=== PATIENT | female | born 1990 | race Caucasian/White ===

== ENCOUNTER 2016-11-28 17:30 | Emergency (ER) | payer OTHER ==
[2016-06-06 21:57] VITALS: BP 114/75
[2016-11-29] MEDS ORDERED: ONDA4TAB7 PO (08:40)
[2016-11-29] MEDS ORDERED: CIPR250T PO (08:40)
== END 2016-11-28 21:12 | disposition left against medical advice (07) ==
LOC: ER 17:30
DX: R10.9 Unspecified abdominal pain (principal); Z53.21 Procedure and treatment not carried out due to patient leaving prior to being seen by health care provider

== ENCOUNTER 2016-11-29 05:29 | Emergency (ER) | payer OTHER ==
[~2016-11-29] VITALS: Ht 157.5 cm; Wt 88.0 kg
[2016-11-29 06:12] LABS: BILIRUBIN,URINE NEGATIVE (NEG); GLUCOSE,URINE NEGATIVE (NEG); NITRITE,URINE NEGATIVE (NEG); PH,URINE 6.5; PROTEIN,URINE NEGATIVE (NEG-TRACE)
[2016-11-29 06:33] LABS: BACTERIA,URINE MODERATE /HPF (0-FEW); RBC,URINE OCC /HPF (0-2); SQUAMOUS EPITHELIAL CELL,UR MOD /LPF
[2016-11-29] MEDS ORDERED: ONDANSETRON PF 4 MG/2 ML VIAL. IV ONE (07:00)
[2016-11-29] MEDS ORDERED: IV NORMAL SALINE 1000ML BAG 1,000 ML IV SCH (07:00)
[2016-11-29] MEDS ORDERED: KETOROLAC 15 MG/ML VIAL. IV ONE (07:00)
[2016-11-29 07:10] LABS: BASO % 0 % (0-3); EOS % 1 % (0-3); HEMATOCRIT 40.8 % (36.0-47.0); HEMOGLOBIN 13.5 g/dL (12.0-15.5); LYMPH # 2.1 x10^3/uL (1.0-4.8); LYMPH % 18 % (24-48); MEAN CORPUSCULAR HEMOGLOBIN 31 pg (25-35); MEAN CORPUSCULAR HGB CONC 33 g/dL (31-37); MEAN CORPUSCULAR VOLUME 92 fL (79-100); MONO % 7 % (0-9); NEUT % 73 % (31-73); PLATELET COUNT 197 x10^3/uL (140-400); RED BLOOD COUNT 4.43 x10^6/uL (3.50-5.40); RED CELL DISTRIBUTION WIDTH 12.6 % (11.5-14.5); WHITE BLOOD COUNT 11.7 x10^3/uL (4.0-11.0)
[2016-11-29 07:14] LABS: CALCIUM 8.7 mg/dL (8.5-10.1); CREATININE 0.8 mg/dL (0.6-1.0); GFR 86.7; POTASSIUM 3.8 mmol/L (3.5-5.1)
[2016-11-29] MEDS ORDERED: IOHEXOL 300 MG/ML 75 ML VIAL IV ONE (07:45)
[2016-11-29] MEDS ORDERED: CONTRAST GIVEN MC PRN (07:45)
--- NOTE | 2016-11-29 08:20 | RAD ---
CT of the abdomen and pelvis with contrast, 11/29/2016: History: Abdominal pain, nausea and vomiting Multidetector CT imaging was performed following an IV bolus injection of iodinated contrast material. No oral contrast material was administered for this study. The gallbladder is surgically absent. No hepatic abnormality is seen. The pancreas is unremarkable. The spleen is of normal size. There is mild bilateral renal cortical scarring. There is no evidence of renal obstruction. The uterus is within normal limits in size. There is a 1.5 cm focus of rim-like enhancement on the right ovary compatible with a functional cyst. A trace amount of free fluid is present in the pelvis. No pelvic or abdominal adenopathy is seen. The bowel loops are not dilated. The appendix is normal. No free air is evident in the abdomen or pelvis. IMPRESSION: 1. Trace amount of free fluid in the pelvis. This amount of fluid can be on a physiologic basis. 2. No evidence of appendicitis. PQRS Compliance Statement: One or more of the following individualized dose reduction techniques were utilized for this examination: 1. Automated exposure control 2. Adjustment of the mA and/or kV according to patient size 3. Use of iterative reconstruction technique
[2016-11-29] MEDS ORDERED: CIPR250T PO (08:40)
[2016-11-29] MEDS ORDERED: ONDA4TAB7 PO (08:40)
--- NOTE | 2016-11-29 08:40 | PHYS DOC ---
Past Medical History Past Medical History: Depression, GERD, Other Additional Past Medical Histor: HELP Syndrome, PRE-ECLAPSIA Past Surgical History: Cholecystectomy, , Tubal ligation, Other Additional Past Surgical Histo: KIDNEY STENTS, Partial Hysterectomy Additional Information: 0.5 PPD Alcohol Use: None Drug Use: None Adult General Chief Complaint Chief Complaint: ABDOMINAL PAIN [facility] HPI Patient is a 26 year old female who presents with bilateral, right>left lower abdominal pain that started yesterday evening associated with a few episodes of nonbloody nonbilious emesis and nausea. States her abdominal pain is migratory, crampy, constant. She has no dysuria, but has mild urinary frequency. She denies diarrhea, constipation, vaginal bleeding or discharge, hematuria, back pain, fever or chills, cough, rhinorrhea. She denies sick contacts. Review of Systems Review of Systems Constitutional: Denies fever or chills [] Eyes: Denies change in visual acuity, redness, or eye pain [] HENT: Denies nasal congestion or sore throat [] Respiratory: Denies cough or shortness of breath [] Cardiovascular: No additional information not addressed in HPI [] GI: Denies bloody stools or diarrhea [] : Denies dysuria or hematuria [] Musculoskeletal: Denies back pain or joint pain [] Integument: Denies rash or skin lesions [] Neurologic: Denies headache, focal weakness or sensory changes [] Endocrine: Denies polyuria or polydipsia [] Current Medications Current Medications Current Medications Medications (Trade) Dose Ordered Sig/Meka Start Time Stop Time Status Last Admin Dose Admin Info (Do NOT chart on this entry -- for MONITORING) 1 each PRN DAILY PRN 11/29/16 07:45 11/29/16 11:24 DC Iohexol (Omnipaque 300 Mg/ml) 75 ml 1X ONCE 11/29/16 07:45 11/29/16 07:46 DC 11/29/16 07:48 75 ML Ketorolac Tromethamine (Toradol) 15 mg 1X ONCE 11/29/16 07:00 11/29/16 07:01 DC 11/29/16 07:00 15 MG Ondansetron HCl (Zofran) 4 mg 1X ONCE 11/29/16 07:00 11/29/16 07:01 DC 11/29/16 06:59 4 MG Sodium Chloride (Iv Sodium Chloride 0.9% 1000ml Bag) 1,000 ml @ 1,000 mls/hr Q1H 11/29/16 07:00 11/29/16 07:59 DC 11/29/16 06:59 1,000 MLS/HR Allergies Allergies Allergies Coded Allergies Type Severity Reaction Last Updated Verified No Known Drug Allergies 02/24/16 No Physical Exam Physical Exam Constitutional: Well developed, well nourished, no acute distress, non-toxic appearance. [] HENT: Normocephalic, atraumatic, bilateral external ears normal, oropharynx moist, nose normal. [] Eyes: PERRLA, EOMI. [] Neck: Normal range of motion, supple. [] Cardiovascular:Heart rate regular rhythm [] Lungs & Thorax: Bilateral breath sounds clear to auscultation [] Abdomen: Bowel sounds normal, soft, mild bilateral R>L lower abdominal tenderness, no guarding or rebound. [] Skin: Warm, dry, no erythema, no rash. [] Back: No tenderness, no CVA tenderness. [] Extremities: ROM intact, no edema. [] Neurologic: Alert and oriented X 3, normal motor function, normal sensory function, no focal deficits noted. [] Psychologic: Affect normal, judgement normal, mood normal. [] Current Patient Data Vital Signs Vital Signs Date Time Temp Pulse Resp B/P Pulse Ox O2 Delivery O2 Flow Rate FiO2 11/29/16 10:31 74 17 114/65 94 Room Air 11/29/16 05:40 98.5 98.5 Lab Values Laboratory Tests Test 11/29/16 05:40 11/29/16 05:55 11/29/16 06:04 Urine Collection Type Void Urine Color Yellow Urine Clarity Clear Urine pH 6.5 Urine Specific [place] 1.025 Urine Protein Negativemg/dL (NEG-TRACE) Urine Glucose (UA) Negativemg/dL (NEG) Urine Ketones (Stick) Negativemg/dL (NEG) Urine Blood Negative (NEG) Urine Nitrite Negative (NEG) Urine Bilirubin Negative (NEG) Urine Urobilinogen Dipstick 2.0mg/dL (0.2 mg/dL) Urine Leukocyte Esterase Large (NEG) Urine RBC Occ/HPF (0-2) Urine WBC 11-20/HPF (0-4) Urine Squamous Epithelial Cells Mod/LPF Urine Bacteria Moderate/HPF (0-FEW) Urine Mucus Mod/LPF White Blood Count 11.7x10^3/uL (4.0-11.0) H Red Blood Count 4.43x10^6/uL (3.50-5.40) Hemoglobin 13.5g/dL (12.0-15.5) Hematocrit 40.8% (36.0-47.0) Mean Corpuscular Volume 92fL (79-100) Mean Corpuscular Hemoglobin 31pg (25-35) Mean Corpuscular Hemoglobin Concent 33g/dL (31-37) Red Cell Distribution Width 12.6% (11.5-14.5) Platelet Count 197x10^3/uL (140-400) Neutrophils (%) (Auto) 73% (31-73) Lymphocytes (%) (Auto) 18% (24-48) L Monocytes (%) (Auto) 7% (0-9) Eosinophils (%) (Auto) 1% (0-3) Basophils (%) (Auto) 0% (0-3) Neutrophils # (Auto) 8.6x10^3uL (1.8-7.7) H Lymphocytes # (Auto) 2.1x10^3/uL (1.0-4.8) Monocytes # (Auto) 0.8x10^3/uL (0.0-1.1) Eosinophils # (Auto) 0.1x10^3/uL (0.0-0.7) Basophils # (Auto) 0.0x10^3/uL (0.0-0.2) Sodium Level 141mmol/L (136-145) Potassium Level 3.8mmol/L (3.5-5.1) Chloride Level 105mmol/L (98-107) Carbon Dioxide Level 25mmol/L (21-32) Anion Gap 11 (6-14) Blood Urea Nitrogen 12mg/dL (7-20) Creatinine 0.8mg/dL (0.6-1.0) Estimated GFR (Cockcroft-Gault) 86.7 Glucose Level 116mg/dL (70-99) H Calcium Level 8.7mg/dL (8.5-10.1) POC Urine HCG, Qualitative Hcg negative (Negative) Laboratory Tests 11/29/16 05:55 Laboratory Tests 11/29/16 05:55 Radiology/Procedures Radiology/Procedures CT abdomen and pelvis with IV contrast IMPRESSION: 1. Trace amount of free fluid in the pelvis. This amount of fluid can be on a physiologic basis. 2. No evidence of appendicitis. DICTATED and SIGNED BY: YULI YOUNGER MD DATE: 11/29/16 0811 Course & Med Decision Making Course & Med Decision Making Pertinent Labs and Imaging studies reviewed. (See chart for details) Laboratory evaluation remarkable for urinary tract infection. Imaging is unremarkable. She is feeling better after medications. She is tolerating oral intake. Return precautions given. She understands and agrees with plan. Dragon Disclaimer Dragon Disclaimer This electronic medical record was generated, in whole or in part, using a voice recognition dictation system. Departure Departure Impression: Primary Impression: Abdominal pain Additional Impressions: Cystitis without hematuria Nausea and vomiting Disposition: 01 HOME, SELF-CARE Condition: STABLE Referrals: BIMAL METZ MD (PCP) Patient Instructions: Abdominal Pain, [id number] Additional Instructions: Take Zofran as needed for nausea. Take ciprofloxacin for urinary tract infection. Follow-up with your primary care doctor within one week. Return for any concerns. Scripts Ciprofloxacin Hcl 250 Mg Tablet1 Tab PO BID #10 TAB Prov:Jareth BRIGGS MD 11/29/16 Ondansetron Hcl (Zofran)4 Mg Tablet1 Tab PO Q6HRS PRN NAUSEA #10 TAB Prov:Jareth BRIGGS MD 11/29/16 Problem Qualifiers Primary Impression: Abdominal pain Abdominal location: lower abdomen, unspecified Qualified Code: R10.30 - Lower abdominal pain, unspecified Additional Impressions: Nausea and vomiting Vomiting type: unspecified Vomiting Intractability: non-intractable Qualified Code: R11.2 - Nausea with vomiting, unspecified Jareth BRIGGS MD Nov 29, 2016 08:40
[2016-11-29 10:31] VITALS: BP 114/65
== END 2016-11-29 10:33 | disposition home or self-care (01) ==
LOC: ER 05:29
DX: N30.90 Cystitis, unspecified without hematuria (principal); F32.9 Major depressive disorder, single episode, unspecified; K21.9 Gastro-esophageal reflux disease without esophagitis; F17.210 Nicotine dependence, cigarettes, uncomplicated; Z96.0 Presence of urogenital implants; Z90.710 Acquired absence of both cervix and uterus; Z90.49 Acquired absence of other specified parts of digestive tract
CPT/HCPCS: 36415; 74177; 80048; 81001; 81025; 85027; 87086; 96361; 96374; 96375; 99285; J1885; J2405; J7030; Q9967

== ENCOUNTER 2017-01-02 13:41 | Inpatient (IN) | payer SELFPAY ==
[~2017-01-02] VITALS: Ht 157.5 cm; Wt 85.9 kg
[~2017-01-02 13:41] MED LIST: CIPR250T PO; ONDA4TAB7 PO
--- NOTE | 2017-01-02 15:34 | RAD ---
EXAM: Head and cervical spine CT without contrast. HISTORY: Weakness. TECHNIQUE: Computed tomographic images of the head and cervical spine were obtained without contrast. One or more of the following individualized dose reduction techniques were utilized for this examination: 1. Automated exposure control. 2. Adjustment of the mA and/or kV according to patient size. 3. Use of iterative reconstruction technique. COMPARISON: None. FINDINGS: Head: There is no acute hemorrhage. There is no mass effect or midline shift. There is no hydrocephalus. The verma and white matter differentiation pattern is intact. There is a small sphenoid sinus because retention cyst. The mastoid air cells are clear. The orbits are unremarkable. Cervical spine: There is mild cervical kyphosis and minimal anterolisthesis of C2 on C3 and C3 on C4, likely positional. The vertebral bodies normal height and the disc spaces are preserved. There is no suspicious osseous lesion. There is no fracture. There is no significant foraminal or central canal stenosis. There is a 1.1 cm hypodense nodule or cyst within the right thyroid lobe. IMPRESSION: 1. No acute intracranial finding or cervical spine finding. 2. Mild cervical kyphosis with slight listhesis at the upper cervical levels. 3. 1.1 cm right thyroid lesion. This can be better assessed with a thyroid sonogram.
[2017-01-02 16:03] LABS: BASO % 0 % (0-3); EOS % 1 % (0-3); HEMATOCRIT 42.2 % (36.0-47.0); HEMOGLOBIN 14.9 g/dL (12.0-15.5); LYMPH # 2.3 x10^3/uL (1.0-4.8); LYMPH % 29 % (24-48); MEAN CORPUSCULAR HEMOGLOBIN 32 pg (25-35); MEAN CORPUSCULAR HGB CONC 35 g/dL (31-37); MEAN CORPUSCULAR VOLUME 90 fL (79-100); MONO % 5 % (0-9); NEUT % 65 % (31-73); PLATELET COUNT 211 x10^3/uL (140-400); RED CELL DISTRIBUTION WIDTH 12.6 % (11.5-14.5)
[2017-01-02 16:13] LABS: BILIRUBIN,URINE NEGATIVE (NEG); GLUCOSE,URINE NEGATIVE (NEG); NITRITE,URINE NEGATIVE (NEG); PH,URINE 5.5; PROTEIN,URINE NEGATIVE (NEG-TRACE)
[2017-01-02 16:19] LABS: CREATININE 0.8 mg/dL (0.6-1.0); GFR 86.7; POTASSIUM 4.1 mmol/L (3.5-5.1)
[2017-01-02 16:31] LABS: BACTERIA,URINE FEW /HPF (0-FEW); SQUAMOUS EPITHELIAL CELL,UR MANY /LPF
--- NOTE | 2017-01-02 16:50 | PHYS DOC ---
Past Medical History Past Medical History: Depression, GERD, Other Additional Past Medical Histor: HELP Syndrome, PRE-ECLAPSIA, headaches Past Surgical History: Cholecystectomy, , Tubal ligation, Other Additional Past Surgical Histo: KIDNEY STENTS, Partial Hysterectomy Additional Information: 10/10 ppd Alcohol Use: None Drug Use: None Adult General Chief Complaint Chief Complaint: NEURO SYMPTOMS/DEFICITS HPI HPI 26-year-old female who states she's had some right sided weakness in her right upper and lower extremity for the last 3 days. She denies any chest pain or shortness of breath. She states she feels some numbness and tingling in both of her extremities on the right side and significant weakness. She denies any facial symptoms. She denies any slurring to her speech. Patient is fully alert and oriented in no acute distress. She denies any history of health problems. Review of Systems Review of Systems Constitutional: Denies fever or chills [] Eyes: Denies change in visual acuity, redness, or eye pain [] HENT: Denies nasal congestion or sore throat [] Respiratory: Denies cough or shortness of breath [] Cardiovascular: No additional information not addressed in HPI [] GI: Denies abdominal pain, nausea, vomiting, bloody stools or diarrhea [] : Denies dysuria or hematuria [] Musculoskeletal: Denies back pain or joint pain [] Integument: Denies rash or skin lesions [] Neurologic: Denies headache, has focal weakness or sensory changes [] Endocrine: Denies polyuria or polydipsia [] Current Medications Current Medications Current Medications Medications (Trade) Dose Ordered Sig/[facility] Start Time Stop Time Status Last Admin Dose Admin Gadobutrol (Gadavist) 8 mmol 1X ONCE 01/02/17 17:15 01/02/17 17:16 DC 01/02/17 17:24 8 MMOL Allergies Allergies Allergies Coded Allergies Type Severity Reaction Last Updated Verified No Known Drug Allergies 02/24/16 No Physical Exam Physical Exam Constitutional: Well developed, well nourished, no acute distress, non-toxic appearance. [] HENT: Normocephalic, atraumatic, bilateral external ears normal, oropharynx moist, no oral exudates, nose normal. [] Eyes: PERRLA, EOMI, conjunctiva normal, no discharge. [] Neck: Normal range of motion, no tenderness, supple, no stridor. [] Cardiovascular:Heart rate regular rhythm, no murmur [] Lungs & Thorax: Bilateral breath sounds clear to auscultation [] Abdomen: Bowel sounds normal, soft, no tenderness, no masses, no pulsatile masses. [] Skin: Warm, dry, no erythema, no rash. [] Back: No tenderness, no CVA tenderness. [] Extremities: No tenderness, no cyanosis, no clubbing, ROM intact, no edema, 3/5 weakness to the right upper and lower extremity. [] Neurologic: Alert and oriented X 3, 3/5 muscle strength to the right upper and lower extremity. [] Psychologic: Affect normal, judgement normal, mood normal. [] Current Patient Data Vital Signs Vital Signs Date Time Temp Pulse Resp B/P Pulse Ox O2 Delivery O2 Flow Rate FiO2 01/02/17 13:46 98.2 86 18 137/79 100 Room Air 98.2 Lab Values Laboratory Tests Test 01/02/17 15:10 01/02/17 15:45 01/02/17 16:00 POC Urine HCG, Qualitative Hcg negative (Negative) White Blood Count 8.0x10^3/uL (4.0-11.0) Red Blood Count 4.70x10^6/uL (3.50-5.40) Hemoglobin 14.9g/dL (12.0-15.5) Hematocrit 42.2% (36.0-47.0) Mean Corpuscular Volume 90fL (79-100) Mean Corpuscular Hemoglobin 32pg (25-35) Mean Corpuscular Hemoglobin Concent 35g/dL (31-37) Red Cell Distribution Width 12.6% (11.5-14.5) Platelet Count 211x10^3/uL (140-400) Neutrophils (%) (Auto) 65% (31-73) Lymphocytes (%) (Auto) 29% (24-48) Monocytes (%) (Auto) 5% (0-9) Eosinophils (%) (Auto) 1% (0-3) Basophils (%) (Auto) 0% (0-3) Neutrophils # (Auto) 5.2x10^3uL (1.8-7.7) Lymphocytes # (Auto) 2.3x10^3/uL (1.0-4.8) Monocytes # (Auto) 0.4x10^3/uL (0.0-1.1) Eosinophils # (Auto) 0.1x10^3/uL (0.0-0.7) Basophils # (Auto) 0.0x10^3/uL (0.0-0.2) Sodium Level 140mmol/L (136-145) Potassium Level 4.1mmol/L (3.5-5.1) Chloride Level 104mmol/L (98-107) Carbon Dioxide Level 25mmol/L (21-32) Anion Gap 11 (6-14) Blood Urea Nitrogen 13mg/dL (7-20) Creatinine 0.8mg/dL (0.6-1.0) Estimated GFR (Cockcroft-Gault) 86.7 Glucose Level 91mg/dL (70-99) Calcium Level 9.0mg/dL (8.5-10.1) Thyroid Stimulating Hormone (TSH) 1.355uIU/mL (0.358-3.74) Urine Collection Type Unknown Urine Color Yellow Urine Clarity Cloudy Urine pH 5.5 Urine Specific [place] 1.015 Urine Protein Negativemg/dL (NEG-TRACE) Urine Glucose (UA) Negativemg/dL (NEG) Urine Ketones (Stick) Negativemg/dL (NEG) Urine Blood Large (NEG) Urine Nitrite Negative (NEG) Urine Bilirubin Negative (NEG) Urine Urobilinogen Dipstick 1.0mg/dL (0.2 mg/dL) Urine Leukocyte Esterase Small (NEG) Urine RBC 6-10/HPF (0-2) Urine WBC 1-4/HPF (0-4) Urine Squamous Epithelial Cells Many/LPF Urine Bacteria Few/HPF (0-FEW) Urine Mucus Marked/LPF Laboratory Tests 01/02/17 15:45 Laboratory Tests 01/02/17 15:45 EKG EKG [] Radiology/Procedures Radiology/Procedures Brain MRI with and without contrast demonstrates the following: PROCEDURE MR brain without and with intravenous contrast. HISTORY Right arm and leg numbness with tingling for 3 days. Weakness. TECHNIQUE Routine multiplanar, multisequence MRI of the brain was performed both prior to and and after intravenous gadolinium, [address] head January 02, 2017. FINDINGS Ventricles and sulci appear appropriate in size and location for patient age. There is no shift of midline structures or significant mass effect. No restricted diffusion to suggest acute infarction is identified. No acute intracranial hemorrhage is seen. No enhancing intracranial mass is appreciated. Brain parenchymal signal is appropriate. The major intracranial vascular flow voids appear intact. Mild sphenoid sinus disease is seen. IMPRESSION 1. No acute intracranial process. 2. Mild sphenoid sinus disease. EXAM: Head and cervical spine CT without contrast. HISTORY: Weakness. TECHNIQUE: Computed tomographic images of the head and cervical spine were obtained without contrast. One or more of the following individualized dose reduction techniques were utilized for this examination: 1. Automated exposure control. 2. Adjustment of the mA and/or kV according to patient size. 3. Use of iterative reconstruction technique. COMPARISON: None. FINDINGS: Head: There is no acute hemorrhage. There is no mass effect or midline shift. There is no hydrocephalus. The verma and white matter differentiation pattern is intact. There is a small sphenoid sinus because retention cyst. The mastoid air cells are clear. The orbits are unremarkable. Cervical spine: There is mild cervical kyphosis and minimal anterolisthesis of C2 on C3 and C3 on C4, likely positional. The vertebral bodies normal height and the disc spaces are preserved. There is no suspicious osseous lesion. There is no fracture. There is no significant foraminal or central canal stenosis. There is a 1.1 cm hypodense nodule or cyst within the right thyroid lobe. IMPRESSION: 1. No acute intracranial finding or cervical spine finding. 2. Mild cervical kyphosis with slight listhesis at the upper cervical levels. 3. 1.1 cm right thyroid lesion. This can be better assessed with a thyroid sonogram. Course & Med Decision Making Course & Med Decision Making Pertinent Labs and Imaging studies reviewed. (See chart for details) 26-year-old female who's had significant right-sided deficits will have a MRI of her brain ordered stat. CT of her head and neck did not reveal any acute abnormality other than cervical kyphosis and a 1.1 cm right thyroid lesion for which a thyroid sonogram will be recommended. Her MRI did not reveal any acute intracranial abnormality. I discussed her case and symptoms with the neurologist, Dr. Lujan, stated the patient should be admitted for ongoing right-sided weakness and to obtain a MRI of the cervical spine. She also wanted a TSH and B12 panel ordered. I placed these orders and then discussed her case with the hospitalist, Dr. Carrera, who agreed to accept the patient with this plan. A thyroid ultrasound was also ordered to evaluate her thyroid mass. She was admitted without incident. Her laboratory workup was essentially unremarkable. Dragon Disclaimer Dragon Disclaimer This electronic medical record was generated, in whole or in part, using a voice recognition dictation system. Departure Departure Impression: Primary Impression: Right sided weakness Disposition: ADMITTED INPATIENT Admitting Physician: Other Condition: STABLE Referrals: BIMAL METZ MD (PCP) Patient Instructions: Weakness, [id number] JOIE SAUCEDO DO Jan 02, 2017 16:50
[2017-01-02] MEDS ORDERED: GADOBUTROL 10 MMOL/10 ML VIAL IV ONE (17:15)
--- NOTE | 2017-01-02 17:48 | RAD ---
PROCEDURE MR brain without and with intravenous contrast. HISTORY Right arm and leg numbness with tingling for 3 days. Weakness. TECHNIQUE Routine multiplanar, multisequence MRI of the brain was performed both prior to and and after intravenous gadolinium, [address]ers Gadavist[address] head January 02, 2017. FINDINGS Ventricles and sulci appear appropriate in size and location for patient age. There is no shift of midline structures or significant mass effect. No restricted diffusion to suggest acute infarction is identified. No acute intracranial hemorrhage is seen. No enhancing intracranial mass is appreciated. Brain parenchymal signal is appropriate. The major intracranial vascular flow voids appear intact. Mild sphenoid sinus disease is seen. IMPRESSION 1. No acute intracranial process. 2. Mild sphenoid sinus disease. Electronically signed by: Anderson Holt MD (Jan 02, 2017 17:47:25)
[2017-01-02] MEDS ORDERED: ONDANSETRON PF 4 MG/2 ML VIAL. IV PRN (18:45)
--- NOTE | 2017-01-02 20:11 | RAD ---
PROCEDURE Ultrasound thyroid. HISTORY Thyroid nodule. COMPARISON None. FINDINGS Right thyroid lobe measures 5.0 centimeters in length x 1.4 centimeters in AP dimension x 2.2 centimeters in transverse dimension. Inferior right thyroid lobe demonstrates complex nodule with hyperechoic and hypoechoic elements. There may be a few calcifications as well. Thyroid nodule measures 2.0 centimeters in maximum dimension. The thyroid isthmus measures 6 millimeters in thickness, mildly enlarged. Left thyroid lobe measures 3.7 centimeters in length by 1.4 centimeters in AP dimension by 1.7 centimeters in transverse dimension. Left thyroid is homogeneous. IMPRESSION Inferior right thyroid lobe demonstrates a nodule measuring 2.0 centimeters in maximum dimension. This should be amenable to ultrasound-guided fine-needle aspiration. Electronically signed by: Anderson Holt MD (Jan 02, 2017 20:09:22)
--- NOTE | 2017-01-02 20:17 | ACF ---
Admission Forms Criteria NEUROLOGY GRG Clinical Indications for Admission to Inpatient Care (Place ' X' for any and all applicable criteria): Hospital admission is needed for appropriate care of the patient because of ANY ONE of the following: [ ]I. New-onset or worsening altered mental status remaining after emergency or observation level care (as appropriate) (9)(10)(11) [ ]II. Severe INTERLOCKING INSTALLER infections or inflammatory conditions, including ANY ONE of the following(1)(2)(3): [ ]a) Intracranial abscess [ ]b) Spinal abscess or myelitis [ ]c) Tuberculous or other nonbacterial, nonviral INTERLOCKING INSTALLER infection(8) [ ]III. Encephalitis(1)(2)(3) [ ]IV. Status epilepticus or repetitive seizures not controlled with emergent treatment [A] (7)(8) [ ]V. Transient alteration in consciousness with high-risk etiology; examples include (12)(13): [ ]a) Cardiovascular source [ ]b) Cataplexy [ ]. Cerebral aneurysm requiring ANY ONE of the following(14): [ ]a) IV antihypertensives or vasoactive agents [ ]b) Sedation and analgesia for suspected leak [ ]c) Need for external ventricular drainage and cerebral perfusion pressure monitoring [ ]d) Emergent evaluation to determine need for surgical clipping or endovascular coiling by interventional radiology. If surgery is required ( Also use Craniotomy, Supratentorial, for Surgery of Bleeding Intracranial Aneurysm (for bleeding aneurysm) or Craniotomy, Supratentorial (for nonbleeding aneurysm) as appropriate. [ ]VII. Altered mental status that is severe or persistent(16) [ ]VIII New-onset severe neurologic findings requiring inpatient care; examples include: [ ]a) Papilledema [ ]b) Cerebral edema [ ]c) Mass effect on imaging [X]IX. New-onset severe neurologic symptom requiring inpatient care indicated by ANY ONE of the following: [ ]a) Aphasia(15) [X]b) Weakness (grade 3 or less) [ ]c) Paralysis (eg, hemiplegia) [ ]d) Spasticity(16) [ ]e) Ataxia(17) [ ]f) Amnesia(18) [ ]g) Involuntary movements(19) [ ]h) Vertigo [ ]i) Other severe neurologic symptom not treatable at alternative level of care (eg, observation care) [ ]X. Guillain-Tacoma syndrome(20) [ ]XI. Myasthenia gravis crisis or inpatient monitoring need as indicated by ANY ONE of the following(21): [ ]a) Inadequate airway protection [ ]b) Respiratory insufficiency requiring intubation or inpatient. monitoring [ ]c) Progressive dysphagia with failure to thrive [ ]d) Intensive treatment (eg, course of plasmapheresis) with inadequate outpatient situation to monitor patients status [ ]XII. Multiple sclerosis or other acute demyelinating disease requiring inpatient care as indicated by ANY ONE of the following (22)(23): [ ]a) Acute severe deterioration requiring inpatient treatment (eg, IV steroids, plasmapheresis, close observation) [ ]b) Acute complication requiring inpatient care (eg, sepsis, severe decubitus, aspiration) [ ]XIII. Intracranial hypertension (eg, pseudotumor cerebri) requiring inpatient care (eg, acute visual loss, inadequate oral intake) (24) [ ]XIV.Parkinson disease requiring inpatient care (Also use Optimal Recovery Care Criteria or General Recovery Criteria as appropriate) indicated by ANY ONE of the following(25): [ ]a) Infection (eg, aspiration pneumonia) not treatable at alternative level of care [ ]b) Volume depletion not responsive to emergency and observation care treatment (as appropriate) [ ]c) Life-threatening agitation or psychotic behavior not treatable on emergency, observation care, or alternative level (eg, residential) basis [ ]d) Severe medication withdrawal effects (eg, freezing, neuroleptic malignant syndrome) not responsive to emergency and observation care treatment (as appropriate) [ ]e) Other severe manifestation not treatable at alternative level of care [ ]XV.Amyotrophic lateral sclerosis with inpatient care needs as indicated by ANY ONE of the following(26): [ ]a) Acute complications requiring inpatient care (Use Optimal Recovery Care Criteria or General Recovery Criteria as appropriate); examples include: [ ]i) Aspiration pneumonia [ ]ii) Sepsis [ ]b) Dehydration or hypovolemia (not responsive to emergency and observation care treatment as appropriate) AND artificial support desired [ ]c) Inadequate airway protection AND artificial support desired [ ]d) Severe ventilatory insufficiency AND artificial support desired [ ]XVI.Severe myopathy, neuropathy, or other neuromuscular disease as indicated by ANY ONE of the following: [ ]a) New-onset severe diffuse weakness (eg, strength 3/5 or less) [ ]b) Severe dysphagia [ ]c) Dyspnea at rest or with minimal exertion (new) [ ]d) Inadequate airway protection [ ]e) Inadequate ventilation as indicated by ANY ONE of the following : [ ]i) Partial pressure of carbon dioxide greater than 44 mm Hg (5.9 kPa) (new) [ ]ii) Reduced peak expiratory flow rate (new) [ ]iii) Vital capacity less than 50% of predicted ( less than 15 mL/kg) [ ]iv) Peak inspiratory force less negative than -30 cm H20 (-2942 Pa) [ ]XVII.Complications of congenital or degenerative disease (eg, infection, seizures, dehydration, injury) not responsive to emergency and observation care treatment (as appropriate ) [C](16)(29)(30) [ ]XVIII.Suspected or confirmed nerve or muscle toxic injury, including ANY ONE of the following: [ ]a) Rhabdomyolysis(31) [ ]b) Botulism(32) [ ]c) Other severe toxin-induced sign or symptom [ ]XIX. Neurologic trauma requiring inpatient treatment (medical) indicated by ANY ONE of the following(33)(34): [ ]a) Vital signs or neurologic signs more frequently than every 4 hours [ ]b) Hyperosmolar therapy [ ]c) Respiratory monitoring [ ]d) Intracranial pressure monitoring and treatment [ ]e) Stabilization and immobilization device placement (eg, braces, body jacket) [ ]f) Intubation & mechanical ventilation for airway protection or therapeutic hyperventilation [ ]g) Other treatment or monitoring needed that requires inpatient level of care [ ]XX.Complications of neurologic devices (eg, ventricular shunt, neurostimulator) requiring ANY ONE of the following(35)(36): [ ]a) IV antibiotics with monitoring while awaiting culture results [ ]b) Monitoring for hydrocephalus [ ]XXI Vasculitis with ANY ONE of the following(4)(5): [ ]a) Altered mental status [ ]b) Psychosis [ ]c) Seizures [ ]XXII. Neurology condition and ALL of the following: [ ]a) Symptom or finding for which emergency and observation care have failed or are not considered appropriate (Use General Criteria: Observation Care as appropriate) [ ]b) Presence of ANY ONE of the following: [ ]i) A General Admission Criteria [ ]ii A Pediatric General Admission Criteria The original [facility] content created by Hali Edwards has been revised. The portions of the content which have been revised are identified through the use of italic text or in bold, and [facility] has neither reviewed nor approved the modified material. All other unmodified content is copyright [facility] Please see references footnoted in the original [facility] edition 2016 Admission Criteria Met?: Yes ERIC GAGE Jan 02, 2017 20:17
[2017-01-02] MEDS: ACETAMINOPHEN 325 MG TABLET. PO PRN (21:52)
[2017-01-02] MEDS: NICOTINE 14MG PATCH. TD SCH (21:52)
[2017-01-02] MEDS ORDERED: NICOTINE POLACRILEX 2MG GUM PACKAGE of 12. BC PRN (22:15)
[2017-01-02] MEDS ORDERED: OXYCODONE IR 5 MG TABLET. PO PRN (22:15)
[2017-01-02 22:26] VITALS: BP 120/79
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
[2017-01-02 23:30] VITALS: BP 92/48
[2017-01-03 03:25] VITALS: BP 92/57
[2017-01-03] MEDS: ACETAMINOPHEN 325 MG TABLET. PO PRN (04:26)
[2017-01-03 07:00] VITALS: BP 98/59
[2017-01-03] MEDS: NICOTINE 14MG PATCH. TD SCH (08:43)
[2017-01-03] MEDS ORDERED: FLU VACC QUAD 2016-17 (36MOS+)/PF 0.5 ML SYRINGE. VAX IM ONE (08:45)
[2017-01-03] MEDS ORDERED: INFLUENZA VAX SCREEN BY RX. MC PRN (08:45)
[2017-01-03] MEDS ORDERED: GADOBUTROL 7.5 MMOL/7.5 ML VIAL IV ONE (09:15)
[2017-01-03 10:50] VITALS: BP 94/53
--- NOTE | 2017-01-03 11:04 | RAD ---
PROCEDURE MRI cervical spine with and without contrast. HISTORY Right arm tingling and numbness. Unable to talent development manager anything. No prior surgery. TECHNIQUE Sagittal T1, sagittal T2, sagittal STIR, axial T1, axial T2, and axial T2 gradient sequences are provided. 7.5 milliliters of intravenous Gadavist was administered and post-contrast axial and sagittal imaging was then performed. COMPARISON CT from 1 day earlier. FINDINGS There is slight retrolisthesis at C5-C6. There is a probable atypical hemangioma at C3, small. There is no cord signal abnormality. The cervicomedullary junction is unremarkable. There is no pathologic enhancement. Degenerative findings by individual level are as follows: C2-C3, C3-C4, C4-C5: There is no canal or foraminal compromise. C5-C6: There is a minimal disc osteophyte complex without canal or foraminal compromise. C6-C7: There is a minimal disc osteophyte complex without canal or foraminal compromise. C7-T1: There is no canal or foraminal compromise. IMPRESSION 1. Minimal degenerative changes in the cervical spine at C5-C6 and C6-C7. No canal or foraminal compromise at any level. No disc herniation. 2. No cord signal abnormality. No pathologic enhancement. Electronically signed by: Jey Perdue MD (Jan 03, 2017 11:02:46)
[2017-01-03] MEDS ORDERED: CYANOCOBALAMIN (VITAMIN B-12) 1,000 MCG/ML VIAL IM SCH (12:00)
[2017-01-03 15:00] VITALS: BP 115/77
[2017-01-03] MEDS ORDERED: GABA-585 PO (16:06)
--- NOTE | 2017-01-03 19:25 | PDOC2 ---
NEUROLOGY CONSULT Date of Admission Date of Admission DATE: 01/03/17 TIME: 19:13 Reason for Consult Reason for Consult: IMPRESSION: Right side UE and LE weakness and numbness x 3 days before admission. Obesity. GERD Smoking. No evidence of acute CVA this time. No evidence of cord disorder this time. RECOMMENDATIONS/PLAN: Brain and C-spine MRI performed. Neurontin 100 mg tid. FU with PCP. FU with Neurology as needed. HISTORY OF THE PRESENT ILLNESS: 26-y-old female patient had symptoms of right side UE and LE weakness and numbness for about 3 days to come to the ER of [facility] on 01/02. Her brain MRI was negative. She was eventually hospitalized for further evaluation of C-cord by MRI but no finding to explainher symptoms. She stated on that her symptoms of weakness was completely resolved, but she still feels very mild numbness in her hand. PAST MEDICAL HISTORY: Please see above. PAST SURGERY HISTORY: Cholecystectomy Partial hysterectomy Tubal ligation. ALLERGY: Reviewed. MEDICATIONS: Refer to MAR FAMILY HISTORY: Kidney stone, father OA SOCIAL HISTORY: Lives at home. Denies illicit drug use. She smokes 2 packs of cigarettes in 3 days. REVIEW OF SYSTEMS: Constitutional: No malnutrition, weight loss, cachexia. Head: No traumatic brain or head injury. Skin: No edema, or rash. Ear: No infection. Eyes: No vision loss or color blindness. Nose: No bleeding or purulent discharges. Hearing: No hearing decrease. Neck: No injury. Breast: No history of cancer, masses,or discharges. Cardiac: No DE, arrhythmia. Pulmonary: No COPD. GI: No GI ulcer, GI bleeding. Urinary/genital: UTI. Endocrinologic: obesity. Skeletomuscular: No muscular atrophy, deformity. Neurological: see HP. Psychiatric: Denies drug use/abuse. Otherwise, not [id number] review of systems. PHYSICAL EXAMINATION: General appearance is in no acute distress. HEENT: Normocephalic and nontraumatic. Eyes, nose, ears, and throat are unremarkable. Neck is supple. No lymphadenopathy. No bruits are heard over the carotid artery. No crepitus. Cardiovascular: S1, S2, regular rate and rhythm. Pulmonary: Clear to auscultation bilaterally. Abdomen: Bowel sounds are positive. Abdomen is soft, nontender, and nondistended. Extremities: No rash, lesions, or edema. No restriction of range of motion NEUROLOGICAL EXAMINATION: Alert Oriented to time, place and person. PERRL. EOMI. CN: no focal findings. Muscle tone: within normal. Muscle strength: 5 DTR: 2+ Plantar reflex: Flexor response bilaterally Gait: Normal. Sensory exam: no abnormal findings. No cerebellar signs elicited. F-T-N test accurate. Current Medications Current Medications Current Medications Gadobutrol (Gadavist) 8 mmol 1X ONCE IV Last administered on 01/02/17 17:24; Start 01/02/17 at 17:15; Stop 01/02/17 at 17:16; Status DC Ondansetron HCl (Zofran) 4 mg PRN Q8HRS PRN IV NAUSEA/VOMITING; Start 01/02/17 at 18:45; Stop 01/03/17 at 16:17; Status DC Acetaminophen (Tylenol) 650 mg PRN Q4HRS PRN PO FEVER Last administered on 01/03 04:26; Start 01/02/17 at 18:45; Stop 01/03/17 at 16:17; Status DC Nicotine (Nicoderm Cq 14mg) 1 patch DAILY TD Last administered on 01/03/17 08: 43; Start 01/02/17 at 21:15; Stop 01/03/17 at 16:17; Status DC Oxycodone HCl (Roxicodone) 5 mg PRN Q6HRS PRN PO PAIN Last administered on 01/03 07:21; Start 01/02/17 at 22:15; Stop 01/03/17 at 16:17; Status DC Nicotine Polacrilex (Nicorette Gum) 1 each PRN Q1HR PRN BC SMOKING CESSATION; Start 01/02/17 at 22:15; Stop 01/03/17 at 16:17; Status DC Info (Do NOT chart on this placeholder) 1 each PRN 1X PRN MC SEE COMMENTS; Start 01/03/17 at 08:45; Status UNV Influenza Virus Vaccine Quadrival (Fluarix Quad [id number] Syringe) 0.5 ml ONCE ONCE VAX IM Last administered on 01/03/17 08:45; Start 01/03/17 at 08:45; Stop 01/03/17 at 08:46; Status DC Gadobutrol (Gadavist) 7.5 mmol 1X ONCE IV Last administered on 01/03/17 09:28 ; Start 01/03/17 at 09:15; Stop 01/03/17 at 09:19; Status DC Cyanocobalamin (Vitamin B-12) 1,000 mcg DAILY IM Last administered on 12:29; Start 01/03/17 at 12:00; Stop 01/03/17 at 16:17; Status DC Active Scripts Active Gabapentin 100 Mg Capsule 100 Mg PO BID Ciprofloxacin Hcl 250 Mg Tablet 1 Tab PO BID Zofran (Ondansetron Hcl) 4 Mg Tablet 1 Tab PO Q6HRS PRN Allergies Allergies: Coded Allergies: I S O L A T I O N *CONTACT* (Verified Allergy, Unknown, 01/03/17) +MRSA abscess 08-09-09 No Known Medication Allergies (Verified Allergy, Unknown, 01/03/17) Vitals VITALS Vital Signs Date Time Temp Pulse Resp B/P Pulse Ox O2 Delivery O2 Flow Rate FiO2 01/03/17 15:00 97.9 83 16 115/77 98 Room Air 97.9 Labs Labs Laboratory Tests Test 01/02/17 15:10 01/02/17 15:45 01/02/17 16:00 Bedside Urine HCG, Qualitative Hcg negative (Negative) White Blood Count 8.0x10^3/uL (4.0-11.0) Red Blood Count 4.70x10^6/uL (3.50-5.40) Hemoglobin 14.9g/dL (12.0-15.5) Hematocrit 42.2% (36.0-47.0) Mean Corpuscular Volume 90fL (79-100) Mean Corpuscular Hemoglobin 32pg (25-35) Mean Corpuscular Hemoglobin Concent 35g/dL (31-37) Red Cell Distribution Width 12.6% (11.5-14.5) Platelet Count 211x10^3/uL (140-400) Neutrophils (%) (Auto) 65% (31-73) Lymphocytes (%) (Auto) 29% (24-48) Monocytes (%) (Auto) 5% (0-9) Eosinophils (%) (Auto) 1% (0-3) Basophils (%) (Auto) 0% (0-3) Neutrophils # (Auto) 5.2x10^3uL (1.8-7.7) Lymphocytes # (Auto) 2.3x10^3/uL (1.0-4.8) Monocytes # (Auto) 0.4x10^3/uL (0.0-1.1) Eosinophils # (Auto) 0.1x10^3/uL (0.0-0.7) Basophils # (Auto) 0.0x10^3/uL (0.0-0.2) Sodium Level 140mmol/L (136-145) Potassium Level 4.1mmol/L (3.5-5.1) Chloride Level 104mmol/L (98-107) Carbon Dioxide Level 25mmol/L (21-32) Anion Gap 11 (6-14) Blood Urea Nitrogen 13mg/dL (7-20) Creatinine 0.8mg/dL (0.6-1.0) Estimated GFR (Cockcroft-Gault) 86.7 Glucose Level 91mg/dL (70-99) Calcium Level 9.0mg/dL (8.5-10.1) Vitamin B12 Level 224pg/mL (247-911) Thyroid Stimulating Hormone (TSH) 1.355uIU/mL (0.358-3.74) Urine Collection Type Unknown Urine Color Yellow Urine Clarity Cloudy Urine pH 5.5 Urine Specific [place] 1.015 Urine Protein Negativemg/dL (NEG-TRACE) Urine Glucose (UA) Negativemg/dL (NEG) Urine Ketones (Stick) Negativemg/dL (NEG) Urine Blood Large (NEG) Urine Nitrite Negative (NEG) Urine Bilirubin Negative (NEG) Urine Urobilinogen Dipstick 1.0mg/dL (0.2 mg/dL) Urine Leukocyte Esterase Small (NEG) Urine RBC 6-10/HPF (0-2) Urine WBC 1-4/HPF (0-4) Urine Squamous Epithelial Cells Many/LPF Urine Bacteria Few/HPF (0-FEW) Urine Mucus Marked/LPF PARIS SANDHU MD Jan 03, 2017 19:25
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
== END 2017-01-03 16:17 | disposition home or self-care (01) | DRG 74 ==
LOC: ER 13:41 → 6 SOUTH 18:44
PROVIDERS: ADMIT Internal Medicine Hematology & Oncology; ATTEND Internal Medicine Hematology & Oncology
DX: G62.9 Polyneuropathy, unspecified (principal); E04.1 Nontoxic single thyroid nodule; E66.9 Obesity, unspecified; F17.210 Nicotine dependence, cigarettes, uncomplicated; F32.9 Major depressive disorder, single episode, unspecified; O14.20 HELLP syndrome (HELLP), unspecified trimester; M54.9 Dorsalgia, unspecified; G89.21 Chronic pain due to trauma; M19.90 Unspecified osteoarthritis, unspecified site; R53.1 Weakness; K21.9 Gastro-esophageal reflux disease without esophagitis; Z79.899 Other long term (current) drug therapy; Z87.442 Personal history of urinary calculi; Z90.710 Acquired absence of both cervix and uterus; Z90.49 Acquired absence of other specified parts of digestive tract; Z98.51 Tubal ligation status; Z68.34 Body mass index [BMI] 34.0-34.9, adult
CPT/HCPCS: 36415; 70450; 70553; 72125; 72156; 76536; 80048; 81001; 81025; 82607; 84443; 85027; 87086; 90686; 96374; A9585; J3420; 99285-25

== ENCOUNTER 2017-08-25 19:17 | Emergency (ER) | payer MEDICAID, OTHER ==
[~2017-08-25] VITALS: Ht 157.5 cm; Wt 77.1 kg
[~2017-08-25 19:17] MED LIST changes: +GABA-585 PO
[2017-08-25 19:35] VITALS: BP 143/78
--- NOTE | 2017-08-25 20:45 | PHYS DOC ---
Past Medical History Past Medical History: Depression, GERD, Other Additional Past Medical Histor: HELP Syndrome, PRE-ECLAPSIA, headaches Past Surgical History: Cholecystectomy, , Hysterectomy, Tubal ligation , Other Additional Past Surgical Histo: KIDNEY STENTS, Partial Hysterectomy Alcohol Use: None Drug Use: None Adult General Chief Complaint Chief Complaint: Congestion HPI HPI Patient is a 27 year old female with history of depression and acid reflux who presents with a productive cough, nasal congestion, sore throat with hoarse voice since yesterday. Patient works in a long-term. She states her chest hurts when she coughs and takes deep breaths. She denies any fever. She states she got a flu shot this year. Review of Systems Review of Systems Constitutional: see HPI Eyes: Denies change in visual acuity, redness, or eye pain [] HENT: sore throat and nasal congestion Respiratory: cough denies shortness of breath [] Cardiovascular: No additional information not addressed in HPI [] GI: Denies abdominal pain, nausea, vomiting, bloody stools or diarrhea [] : Denies dysuria or hematuria [] Musculoskeletal: Denies back pain or joint pain [] Integument: Denies rash or skin lesions [] Neurologic: Denies headache, focal weakness or sensory changes [] All other systems were reviewed and found to be within normal limits, except as documented in this note. Allergies Allergies Allergies Coded Allergies Type Severity Reaction Last Updated Verified I S O L A T I O N *CONTACT* Allergy Unknown 01/03/17 Yes No Known Medication Allergies Allergy Unknown 01/03/17 Yes Physical Exam Physical Exam Constitutional: Well developed, well nourished, no acute distress, non-toxic appearance. [] HENT: Normocephalic, atraumatic, bilateral external ears normal, oropharynx moist, no oral exudates, nose normal. [] voice is hoarse. Eyes: PERRLA, EOMI, conjunctiva normal, no discharge. [] Neck: Normal range of motion, no tenderness, supple, no stridor. [] Cardiovascular:Heart rate regular rhythm, no murmur [] Lungs & Thorax: Bilateral breath sounds clear to auscultation [] Abdomen: Bowel sounds normal, soft, no tenderness, no masses, no pulsatile masses. [] Skin: Warm, dry, no erythema, no rash. [] Back: No tenderness, no CVA tenderness. [] Extremities: No tenderness, no cyanosis, no clubbing, ROM intact, no edema. [] Neurologic: Alert and oriented X 3, normal motor function, normal sensory function, no focal deficits noted. [] Psychologic: Affect normal, judgement normal, mood normal. [] Current Patient Data Vital Signs Vital Signs Date Time Temp Pulse Resp B/P (MAP) Pulse Ox O2 Delivery O2 Flow Rate FiO2 08/25/17 19:35 98.4 87 16 97 Room Air 98.4 EKG EKG [] Radiology/Procedures Radiology/Procedures [] Course & Med Decision Making Course & Med Decision Making Pertinent Labs and Imaging studies reviewed. (See chart for details) Patient is in the ED with acute bronchitis, pharyngitis, laryngitis, and an upper respiratory infection. She was discharged with azithromycin and prednisone Tessalon Perles and albuterol inhaler. Provided a note for work for couple days. Instructed to rest and push fluids. Follow up with her PCP in 1-2 weeks. Dragon Disclaimer Dragon Disclaimer This electronic medical record was generated, in whole or in part, using a voice recognition dictation system. Departure Departure Impression: Primary Impression: Acute bronchitis Additional Impressions: Upper respiratory infection Pharyngitis Laryngitis, acute Disposition: HOME, SELF-CARE (this is) Condition: STABLE (C Monday) Referrals: BIMAL METZ MD (PCP) follow up in one week Patient Instructions: Acute Bronchitis, Laryngitis, [id number], Upper Respiratory Infection, Adult, [id number], Viral and Bacterial Pharyngitis Additional Instructions: You were seen for acute bronchitis, pharyngitis, laryngitis, and an upper respiratory infection. Take the prescribed medicines as ordered. Follow-up with your doctor in 1-2 weeks. Scripts Prednisone (PREDNISONE) 50 Mg Tablet 1 TAB PO DAILY, #5 TAB Prov: DEBBI CALIX APRN 08/25/17 Benzonatate (TESSALON PERLE) 100 Mg Capsule 1 CAP PO TID, #30 CAP Prov: DEBBI CALIX APRN 08/25/17 Albuterol Sulfate (PROAIR HFA INHALER) 8.5 Gm Hfa.aer.ad 1 PUFF INH PRN Q6HRS Y for SHORTNESS OF BREATH, #1 INHALER 0 Refills Prov: DEBBI CALIX APRN 08/25/17 Azithromycin (ZITHROMAX) 250 Mg Tablet 1 PKG PO UD, #1 PKG Prov: DEBBI CALIX EMPLOYMENT TRAINING SPECIALIST 08/25/17 Problem Qualifiers Primary Impression: Acute bronchitis Bronchitis organism: unspecified organism Qualified Codes: J20.9 - Acute bronchitis, unspecified Additional Impressions: Upper respiratory infection URI type: unspecified URI Qualified Codes: J06.9 - Acute upper respiratory infection, unspecified Pharyngitis Pharyngitis/tonsillitis etiology: unspecified etiology Qualified Codes: J02.9 - Acute pharyngitis, unspecified DEBBI CALIX EMPLOYMENT TRAINING SPECIALIST Aug 25, 2017 20:45
[2017-08-25] MEDS ORDERED: AZIT250T PO (20:52)
[2017-08-25] MEDS ORDERED: PROAIR HFA8.5 GM INH (20:52)
[2017-08-25] MEDS ORDERED: PRED50TA PO (20:52)
[2017-08-25] MEDS ORDERED: BENZ100C PO (20:52)
[2017-08-26 05:26] LABS: NEGATIVE OBC STREP NEG; POSITIVE OBC STREP POS
== END 2017-08-25 21:04 | disposition home or self-care (01) ==
LOC: ER 19:17
DX: J20.9 Acute bronchitis, unspecified (principal); J06.9 Acute upper respiratory infection, unspecified; J04.0 Acute laryngitis; J02.9 Acute pharyngitis, unspecified; F32.9 Major depressive disorder, single episode, unspecified; K21.9 Gastro-esophageal reflux disease without esophagitis; Z90.49 Acquired absence of other specified parts of digestive tract; Z90.711 Acquired absence of uterus with remaining cervical stump; Z96.0 Presence of urogenital implants; Z91.041 Radiographic dye allergy status
CPT/HCPCS: 87070; 87880; 99283

== ENCOUNTER 2017-10-18 20:05 | Emergency (ER) | payer OTHER ==
[2017-10-18] MEDS: MECLIZINE HCL 12.5 MG TABLET. PO (22:06)
[2017-10-18] MEDS: ONDANSETRON ODT 4 MG TAB.RAPDIS. PO (22:06)
== END 2017-10-18 22:29 | disposition home or self-care (01) ==
LOC: ER 20:05
DX: R42 Dizziness and giddiness (principal); R51 Headache; K21.9 Gastro-esophageal reflux disease without esophagitis; G43.909 Migraine, unspecified, not intractable, without status migrainosus; G89.29 Other chronic pain; Z90.711 Acquired absence of uterus with remaining cervical stump; Z90.49 Acquired absence of other specified parts of digestive tract; Z98.51 Tubal ligation status; Z91.041 Radiographic dye allergy status
CPT/HCPCS: 99283; J8597; Q0162

== ENCOUNTER 2017-11-19 20:27 | Emergency (ER) | payer OTHER ==
[2017-11-19] MEDS: HYDROcodone/APAP 5/325MG 1 TAB TABLET PO ×2 (21:48)
[2017-11-19] MEDS: DOCUSATE 100 MG/10 ML SOLUTION. AS ×2 (22:04)
== END 2017-11-19 23:38 | disposition home or self-care (01) ==
LOC: ER 20:27
DX: H61.23 Impacted cerumen, bilateral (principal); H65.192 Other acute nonsuppurative otitis media, left ear; K21.9 Gastro-esophageal reflux disease without esophagitis; G43.909 Migraine, unspecified, not intractable, without status migrainosus; G89.29 Other chronic pain; Z91.041 Radiographic dye allergy status
CPT/HCPCS: 69209; 99283-25

== ENCOUNTER 2017-12-29 19:15 | Emergency (ER) | payer OTHER | END 2017-12-29 20:32 | disposition home or self-care (01) | LOC: ER 19:15 | DX: L03.317 Cellulitis of buttock (principal); K21.9 Gastro-esophageal reflux disease without esophagitis; G43.909 Migraine, unspecified, not intractable, without status migrainosus; F32.9 Major depressive disorder, single episode, unspecified; Z91.041 Radiographic dye allergy status | CPT/HCPCS: 99283 ==

== ENCOUNTER 2018-05-15 18:57 | Emergency (ER) | payer SELFPAY, OTHER ==
[2018-05-15] MEDS ORDERED: DEXAMETHASONE SOD PHOS 20 MG/5 ML VIAL. IV (19:30)
[2018-05-15] MEDS: ALBUTEROL SULFATE 2.5 MG/3 ML NEBU. NEB (19:45)
[2018-05-15] MEDS: DEXAMETHASONE SOD PHOS 20 MG/5 ML VIAL. IM (20:05)
== END 2018-05-15 20:28 | disposition home or self-care (01) ==
LOC: ER 18:57
DX: J06.9 Acute upper respiratory infection, unspecified (principal); J02.9 Acute pharyngitis, unspecified; R07.89 Other chest pain; M19.90 Unspecified osteoarthritis, unspecified site; F32.9 Major depressive disorder, single episode, unspecified; K21.9 Gastro-esophageal reflux disease without esophagitis; G43.909 Migraine, unspecified, not intractable, without status migrainosus; G89.29 Other chronic pain; Z90.49 Acquired absence of other specified parts of digestive tract; Z90.710 Acquired absence of both cervix and uterus; Z98.890 Other specified postprocedural states; Z98.51 Tubal ligation status; Z91.041 Radiographic dye allergy status
CPT/HCPCS: 71046; 94640; 96372; 99284; J1100; J7613

== ENCOUNTER 2018-07-10 14:45 | Emergency (ER) | payer SELFPAY ==
[~2018-07-10] VITALS: Ht 157.5 cm; Wt 84.4 kg
[~2018-07-10 14:45] MED LIST changes: +AMOX875T PO; +AZIT250T PO; +BENZ100C PO; +CEPH500C PO; +MECL25TA3 PO; +ONDA4TAB10 PO; +PRED50TA PO; +PROAIR HFA8.5 GM INH; +SULF1TAB24 PO; +TRAM-48 PO; +VENTOLIN HFA18 GM INH
--- NOTE | 2018-07-10 15:43 | PHYS DOC ---
Past Medical History Past Medical History: Arthritis, Depression, GERD, Migraines, Other Additional Past Medical Histor: HELLP Syndrome, PRE-ECLAPSIA, CHRONIC BACK PAIN Past Surgical History: Cholecystectomy, , Hysterectomy, Tubal ligation , Other Additional Past Surgical Histo: KIDNEY STENTS, Partial Hysterectomy Alcohol Use: None Drug Use: None Adult General Chief Complaint Chief Complaint: HEADACHE HPI HPI Patient is a 28 year old female with history of depression, anxiety, acid reflex, who presents today complaining of constant sharp generalized 20 out of 10 headache that has been going on for the last 1 month. Patient states the headache is worse in the morning and in the evening. Patient is also complaining of photosensitivity. Denies any nausea vomiting. Denies this being the worst headache in her life despite rating it a 20 out of 10. She states she' s been able to go to work for the last 1 month despite the headache. She just came from work today. She states she's been taking [id number] medications with some relief. Review of Systems Review of Systems Constitutional: Denies fever or chills [] Eyes: Denies change in visual acuity, redness, or eye pain [] HENT: Denies nasal congestion or sore throat [] Respiratory: Denies cough or shortness of breath [] Cardiovascular: No additional information not addressed in HPI [] GI: Denies abdominal pain, nausea, vomiting, bloody stools or diarrhea [] : Denies dysuria or hematuria [] Musculoskeletal: Denies back pain or joint pain [] Integument: Denies rash or skin lesions [] Neurologic: Reports headache, denies focal weakness or sensory changes [] All other systems were reviewed and found to be within normal limits, except as documented in this note. Current Medications Current Medications Current Medications Medications (Trade) Dose Ordered Sig/Meka Start Time Stop Time Status Last Admin Dose Admin Diphenhydramine HCl (Benadryl) 25 mg 1X ONCE 07/10/18 15:45 07/10/18 15:52 DC 07/10/18 16:17 25 MG Ketorolac Tromethamine (Toradol 30mg Vial) 30 mg 1X ONCE 07/10/18 15:45 07/10/18 15:52 DC 07/10/18 16:17 30 MG Methylprednisolone Sodium Succinate (SOLU-Medrol 125MG VIAL) 125 mg 1X ONCE 07/10/18 15:45 07/10/18 15:52 DC 07/10/18 16:16 125 MG Prochlorperazine Edisylate (Compazine) 10 mg 1X ONCE 07/10/18 15:45 07/10/18 15:52 DC 07/10/18 16:17 10 MG Sodium Chloride 1,000 ml @ 1,000 mls/hr 1X ONCE 07/10/18 15:45 07/10/18 16:44 DC 07/10/18 16:16 1,000 MLS/HR Allergies Allergies Allergies Coded Allergies Type Severity Reaction Last Updated Verified I S O L A T I O N *CONTACT* Allergy Unknown 01/03/17 Yes No Known Medication Allergies Allergy Unknown 01/03/17 Yes Physical Exam Physical Exam Constitutional: Well developed, well nourished, no acute distress, non-toxic appearance. [] HENT: Normocephalic, atraumatic, bilateral external ears normal, oropharynx moist, no oral exudates, nose normal. [] Eyes: PERRLA, EOMI, conjunctiva normal, no discharge. [] Neck: Normal range of motion, no tenderness, supple, no stridor. [] Cardiovascular:Heart rate regular rhythm, no murmur [] Lungs & Thorax: Bilateral breath sounds clear to auscultation [] Abdomen: Bowel sounds normal, soft, no tenderness, no masses, no pulsatile masses. [] Skin: Warm, dry, no erythema, no rash. [] Back: No tenderness, no CVA tenderness. [] Extremities: No tenderness, no cyanosis, no clubbing, ROM intact, no edema. [] Neurologic: Alert and oriented X 3, normal motor function, normal sensory function, no focal deficits noted. Cranial nerves II through XII intact Psychologic: Affect normal, judgement normal, mood normal. [] Current Patient Data Vital Signs Vital Signs Date Time Temp Pulse Resp B/P (MAP) Pulse Ox O2 Delivery O2 Flow Rate FiO2 07/10/18 15:45 98.5 102 16 138/72 (94) 96 Room Air 98.5 Lab Values Laboratory Tests Test 07/10/18 15:59 07/10/18 16:03 07/10/18 16:20 Urine Collection Type Void Urine Color Yellow Urine Clarity Clear Urine pH 6.0 Urine Specific [place] 1.015 Urine Protein Negative mg/dL (NEG-TRACE) Urine Glucose (UA) Negative mg/dL (NEG) Urine Ketones (Stick) Negative mg/dL (NEG) Urine Blood Negative (NEG) Urine Nitrite Negative (NEG) Urine Bilirubin Negative (NEG) Urine Urobilinogen Dipstick 1.0 mg/dL (0.2 mg/dL) Urine Leukocyte Esterase Negative (NEG) Urine RBC 0 /HPF (0-2) Urine WBC Occ /HPF (0-4) Urine Squamous Epithelial Cells Mod /LPF Urine Bacteria Few /HPF (0-FEW) Urine Mucus Slight /LPF Urine Opiates Screen Neg (NEG) Urine Methadone Screen Neg (NEG) Urine Barbiturates Neg (NEG) Urine Phencyclidine Screen Neg (NEG) Urine Amphetamine/Methamphetamine Neg (NEG) Urine Benzodiazepines Screen Neg (NEG) Urine Cocaine Screen Neg (NEG) Urine Cannabinoids Screen Neg (NEG) Urine Ethyl Alcohol Neg (NEG) POC Urine HCG, Qualitative Hcg negative (Negative) White Blood Count 8.3 x10^3/uL (4.0-11.0) Red Blood Count 4.21 x10^6/uL (3.50-5.40) Hemoglobin 13.4 g/dL (12.0-15.5) Hematocrit 38.3 % (36.0-47.0) Mean Corpuscular Volume 91 fL (79-100) Mean Corpuscular Hemoglobin 32 pg (25-35) Mean Corpuscular Hemoglobin Concent 35 g/dL (31-37) Red Cell Distribution Width 12.9 % (11.5-14.5) Platelet Count 246 x10^3/uL (140-400) Neutrophils (%) (Auto) 65 % (31-73) Lymphocytes (%) (Auto) 27 % (24-48) Monocytes (%) (Auto) 7 % (0-9) Eosinophils (%) (Auto) 1 % (0-3) Basophils (%) (Auto) 1 % (0-3) Neutrophils # (Auto) 5.4 x10^3uL (1.8-7.7) Lymphocytes # (Auto) 2.2 x10^3/uL (1.0-4.8) Monocytes # (Auto) 0.5 x10^3/uL (0.0-1.1) Eosinophils # (Auto) 0.1 x10^3/uL (0.0-0.7) Basophils # (Auto) 0.0 x10^3/uL (0.0-0.2) Sodium Level 144 mmol/L (136-145) Potassium Level 3.9 mmol/L (3.5-5.1) Chloride Level 108 mmol/L (98-107) H Carbon Dioxide Level 25 mmol/L (21-32) Anion Gap 11 (6-14) Blood Urea Nitrogen 9 mg/dL (7-20) Creatinine 0.7 mg/dL (0.6-1.0) Estimated GFR (Cockcroft-Gault) 99.6 BUN/Creatinine Ratio 13 (6-20) Glucose Level 107 mg/dL (70-99) H Calcium Level 8.8 mg/dL (8.5-10.1) Total Bilirubin 0.2 mg/dL (0.2-1.0) Aspartate Amino Transferase (AST) 27 U/L (15-37) Alanine Aminotransferase (ALT) 58 U/L (14-59) Alkaline Phosphatase 82 U/L (46-116) Total Protein 6.7 g/dL (6.4-8.2) Albumin 3.7 g/dL (3.4-5.0) Albumin/Globulin Ratio 1.2 (1.0-1.7) Ethyl Alcohol Level < 10 mg/dL (0-10) Laboratory Tests 07/10/18 16:20 Laboratory Tests 07/10/18 16:20 EKG EKG [] Radiology/Procedures Radiology/Procedures [] Course & Med Decision Making Course & Med Decision Making Pertinent Labs and Imaging studies reviewed. (See chart for details) This is a 28-year-old female patient presenting to the ED today with a headache that has been going on for 1 month. Patient's labs are negative for any acute findings, CT of the head is negative. Patient was given migraine cocktail, on reexamination patient is completely asleep. I woke her up, she states she feels way better. She was discharged with cyclobenzaprine and diclofenac. Follow-up with the primary care doctor and neurologist in one week. Dragon Disclaimer Dragon Disclaimer This electronic medical record was generated, in whole or in part, using a voice recognition dictation system. Departure Departure Impression: Primary Impression: Headache Disposition: HOME, SELF-CARE Condition: STABLE Referrals: BIMAL METZ MD (PCP) follow up in one week EDSON BARRAZA MD follow with in one week Patient Instructions: General Headache Without Cause, [id number] Additional Instructions: You were evaluated in the emergency room for headache. We put you on medications , take them as needed for your pain. Follow-up with the provided neurologist in the next 7 days. Scripts Diclofenac Sodium (DICLOFENAC SODIUM) 50 Mg Tablet.dr 1 TAB PO BID, #30 TAB 0 Refills Prov: DEBBI CALIX APRN 07/10/18 Cyclobenzaprine Hcl (CYCLOBENZAPRINE HCL) 10 Mg Tablet 1 TAB PO TID, #30 TAB Prov: DEBBI CALIX APRN 07/10/18 Problem Qualifiers Primary Impression: Headache Headache type: unspecified Headache chronicity pattern: unspecified pattern Intractability: not intractable Qualified Codes: R51 - Headache DEBBI CALIX APRN Jul 10, 2018 15:43
[2018-07-10] MEDS ORDERED: PROCHLORPERAZINE 10 MG/2 ML VIAL. IV ONE (15:45)
[2018-07-10] MEDS ORDERED: IV NORMAL SALINE 1000ML BAG 1,000 ML IV ONE (15:45)
[2018-07-10] MEDS ORDERED: methylPREDNISolone SOD SUCC PF 125 MG/2 ML VIAL. IV ONE (15:45)
[2018-07-10] MEDS ORDERED: KETOROLAC 30 MG/ML VIAL. IV ONE (15:45)
[2018-07-10] MEDS ORDERED: diphenhydrAMINE HCL 25 MG CAPSULE PO ONE (15:45)
--- NOTE | 2018-07-10 16:00 | RAD ---
EXAM: Head CT without contrast. HISTORY: Headache and dizziness. TECHNIQUE: Computed tomographic images of the head were obtained without contrast. *One or more of the following individualized dose reduction techniques were utilized for this examination: 1. Automated exposure control. 2. Adjustment of the mA and/or kV according to patient size. 3. Use of iterative reconstruction technique. COMPARISON: Brain MRI dated 01/02/2017. FINDINGS: There is no acute or subacute extra-axial or intraparenchymal hemorrhage. There is no mass effect or midline shift. There is no hydrocephalus. The verma-white matter differentiation pattern is intact. The visualized portions of the orbits, paranasal sinuses and mastoid air cells are unremarkable. No suspicious calvarial lesion is seen. IMPRESSION: 1. No acute finding. 2. Note is made that MRI is more sensitive for acute infarction. Electronically signed by: Kasie Hemphill MD (07/10/2018 3:56 PM) [id number]
[2018-07-10 16:09] LABS: BILIRUBIN,URINE NEGATIVE (NEG); CLARITY,URINE CLEAR; COLOR,URINE YELLOW; NITRITE,URINE NEGATIVE (NEG); PROTEIN,URINE NEGATIVE (NEG-TRACE)
[2018-07-10 16:23] LABS: BACTERIA,URINE FEW /HPF (0-FEW); RBC,URINE 0 /HPF (0-2); SQUAMOUS EPITHELIAL CELL,UR MOD /LPF; WBC,URINE OCC /HPF (0-4)
[2018-07-10 16:24] LABS: AMPHETAMINE/METHAMPHETAMINE NEG (NEG); BARBITURATES NEG (NEG); BENZODIAZEPINES NEG (NEG); CANNABINOIDS NEG (NEG); COCAINE NEG (NEG); METHADONE NEG (NEG); OPIATES NEG (NEG); PHENCYCLIDINE NEG (NEG)
[2018-07-10 16:27] LABS: BASO % 1 % (0-3); EOS # 0.1 x10^3/uL (0.0-0.7); EOS % 1 % (0-3); HEMATOCRIT 38.3 % (36.0-47.0); HEMOGLOBIN 13.4 g/dL (12.0-15.5); LYMPH # 2.2 x10^3/uL (1.0-4.8); LYMPH % 27 % (24-48); MEAN CORPUSCULAR HEMOGLOBIN 32 pg (25-35); MEAN CORPUSCULAR HGB CONC 35 g/dL (31-37); MEAN CORPUSCULAR VOLUME 91 fL (79-100); MONO # 0.5 x10^3/uL (0.0-1.1); MONO % 7 % (0-9); NEUT # 5.4 x10^3uL (1.8-7.7); NEUT % 65 % (31-73); PLATELET COUNT 246 x10^3/uL (140-400); RED BLOOD COUNT 4.21 x10^6/uL (3.50-5.40); RED CELL DISTRIBUTION WIDTH 12.9 % (11.5-14.5); WHITE BLOOD COUNT 8.3 x10^3/uL (4.0-11.0)
[2018-07-10 16:38] LABS: CALCIUM 8.8 mg/dL (8.5-10.1); CREATININE 0.7 mg/dL (0.6-1.0); GFR 99.6; POTASSIUM 3.9 mmol/L (3.5-5.1)
[2018-07-10 16:44] LABS: ALBUMIN 3.7 g/dL (3.4-5.0); ALBUMIN/GLOBULIN RATIO 1.2 (1.0-1.7); TOTAL BILIRUBIN 0.2 mg/dL (0.2-1.0); TOTAL PROTEIN 6.7 g/dL (6.4-8.2)
[2018-07-10] MEDS ORDERED: CYCL10TA2 PO (17:00)
[2018-07-10] MEDS ORDERED: DICL50TA4 PO (17:00)
[2018-07-10 17:03] VITALS: BP 100/54
== END 2018-07-10 17:12 | disposition home or self-care (01) ==
LOC: ER 14:45
DX: G43.909 Migraine, unspecified, not intractable, without status migrainosus (principal); M19.90 Unspecified osteoarthritis, unspecified site; F32.9 Major depressive disorder, single episode, unspecified; K21.9 Gastro-esophageal reflux disease without esophagitis; G89.29 Other chronic pain; Z90.49 Acquired absence of other specified parts of digestive tract; Z90.710 Acquired absence of both cervix and uterus; Z98.890 Other specified postprocedural states; Z98.51 Tubal ligation status; Z91.041 Radiographic dye allergy status
CPT/HCPCS: 36415; 70450; 80053; 80307; 81001; 81025; 85025; 96374; 96375; 99285; G0480; J0780; J1885; J2930; J7030; Q0163; G0479

== ENCOUNTER 2018-11-17 15:32 | Emergency (ER) | payer BC ==
[~2018-11-17] VITALS: Ht 157.5 cm; Wt 81.6 kg
[~2018-11-17 15:32] MED LIST changes: +ALBU2.5V8 INH; +CYCL10TA2 PO; +DICL50TA4 PO; -PROAIR HFA8.5 GM INH
[2018-11-17 15:40] VITALS: BP 139/81
[2018-11-17] MEDS ORDERED: DOCUSATE 100 MG/10 ML SOLUTION. AD STA (16:30)
[2018-11-17] MEDS ORDERED: AMOX875T PO (18:07)
[2018-11-17] MEDS ORDERED: BENZ100C PO (18:07)
--- NOTE | 2018-11-17 18:08 | PHYS DOC ---
Past Medical History Past Medical History: Arthritis, Depression, GERD, Migraines, Other Additional Past Medical Histor: HELLP Syndrome, PRE-ECLAPSIA, CHRONIC BACK PAIN Past Surgical History: Cholecystectomy, , Hysterectomy, Tubal ligation , Other Additional Past Surgical Histo: KIDNEY STENTS, Partial Hysterectomy Alcohol Use: None Drug Use: None Adult General Chief Complaint Chief Complaint: COUGH HPI HPI Patient is a 28 year old female with history of arthritis, depression, acid reflex, presenting today complaining of a cough, bilateral ear pain worse on the right, sore throat, symptoms for 1 week. Patient denies any fever. Review of Systems Review of Systems Constitutional: Denies fever or chills [] Eyes: Denies change in visual acuity, redness, or eye pain [] HENT: Reports bilateral ear pain, sore throat, denies congestion Respiratory: Reports cough, denies shortness of breath [] Cardiovascular: No additional information not addressed in HPI [] GI: Denies abdominal pain, nausea, vomiting, bloody stools or diarrhea [] : Denies dysuria or hematuria [] Musculoskeletal: Denies back pain or joint pain [] Integument: Denies rash or skin lesions [] Neurologic: Denies headache, focal weakness or sensory changes [] All other systems were reviewed and found to be within normal limits, except as documented in this note. Current Medications Current Medications Current Medications Medications (Trade) Dose Ordered Sig/Meka Start Time Stop Time Status Last Admin Dose Admin Docusate Sodium (Colace Solution) 100 mg 1X STAT 11/17/18 16:30 11/17/18 16:31 DC 11/17/18 17:11 100 MG Allergies Allergies Allergies Coded Allergies Type Severity Reaction Last Updated Verified I S O L A T I O N *CONTACT* Allergy Unknown 01/03/17 Yes No Known Medication Allergies Allergy Unknown 01/03/17 Yes Physical Exam Physical Exam Constitutional: Well developed, well nourished, no acute distress, non-toxic appearance. [] HENT: Normocephalic, atraumatic, bilateral external ears normal, oropharynx moist, no oral exudates, nose normal. [] Right ear canal is impacted with cerumen Left TM is moderately injected. Eyes: PERRLA, EOMI, conjunctiva normal, no discharge. [] Neck: Normal range of motion, no tenderness, supple, no stridor. [] Cardiovascular:Heart rate regular rhythm, no murmur [] Lungs & Thorax: Bilateral breath sounds clear to auscultation [] Abdomen: Bowel sounds normal, soft, no tenderness, no masses, no pulsatile masses. [] Skin: Warm, dry, no erythema, no rash. [] Back: No tenderness, no CVA tenderness. [] Extremities: No tenderness, no cyanosis, no clubbing, ROM intact, no edema. [] Neurologic: Alert and oriented X 3, normal motor function, normal sensory function, no focal deficits noted. [] Psychologic: Affect normal, judgement normal, mood normal. [] Current Patient Data Vital Signs Vital Signs Date Time Temp Pulse Resp B/P (MAP) Pulse Ox O2 Delivery O2 Flow Rate FiO2 11/17/18 15:40 98.2 101 20 139/81 (100) 98 Room Air 98.2 EKG EKG [] Radiology/Procedures Radiology/Procedures [] Course & Med Decision Making Course & Med Decision Making Pertinent Labs and Imaging studies reviewed. (See chart for details) This is a 28-year-old female patient presenting to the ED today with bilateral ear pain, cough, sore throat, symptoms for 1 week. Right ear canal was impacted with cerumen which was cleaned in the ED. Patient has otitis media as well. Patient was discharged with amoxicillin. Follow-up with primary care doctor in 1 -2 weeks. Dragon Disclaimer Dragon Disclaimer This electronic medical record was generated, in whole or in part, using a voice recognition dictation system. Departure Departure Impression: Primary Impression: Otitis media of both ears Additional Impressions: Bronchitis Cough Acute viral pharyngitis Cerumen impaction Disposition: 01 HOME, SELF-CARE Condition: STABLE Referrals: BIMAL METZ MD (PCP) Follow-up in one week Patient Instructions: Cough, Adult, [id number], Otitis Media, Adult, Viral Pharyngitis Additional Instructions: You were evaluated in the emergency room. We put you on medications, take them as prescribed. Follow-up with your doctor in 1-2 weeks. Scripts Benzonatate (TESSALON PERLE) 100 Mg Capsule 1 CAP PO TID, #21 CAP Prov: MUTUNGA,DEBBI BIT SANDER 11/17/18 Amoxicillin (AMOXICILLIN) 875 Mg Tablet 1 TAB PO BID, #20 TAB Prov: MUTUNGA,DEBBI BIT SANDER 11/17/18 Problem Qualifiers Primary Impression: Otitis media of both ears Otitis media type: other nonsuppurative Chronicity: acute Recurrence: non- recurrent Qualified Codes: H65.193 - Other acute nonsuppurative otitis media, bilateral Additional Impressions: Cerumen impaction Laterality: right Qualified Codes: H61.21 - Impacted cerumen, right ear DEBBI CALIX APRN Nov 17, 2018 18:08
--- NOTE | 2018-11-19 14:31 | RAD ---
Chest, PA and Lateral: Technique: PA and lateral views of the chest were obtained. History: Cough. Comparison: 05/15/2018. Findings: The heart and pulmonary vasculature appear within normal limits. The lungs are clear. The pleural margins are clear. Impression: No acute chest process is seen. Electronically signed by: Yordy Levy MD (11/19/2018 2:27 PM) [place] [id number]
== END 2018-11-17 18:28 | disposition home or self-care (01) ==
LOC: ER 15:32
DX: H65.193 Other acute nonsuppurative otitis media, bilateral (principal); J02.8 Acute pharyngitis due to other specified organisms; B97.89 Other viral agents as the cause of diseases classified elsewhere; H61.21 Impacted cerumen, right ear; J40 Bronchitis, not specified as acute or chronic; Z98.51 Tubal ligation status; M19.90 Unspecified osteoarthritis, unspecified site; F32.9 Major depressive disorder, single episode, unspecified; K21.9 Gastro-esophageal reflux disease without esophagitis; G89.29 Other chronic pain; G43.909 Migraine, unspecified, not intractable, without status migrainosus; Z90.49 Acquired absence of other specified parts of digestive tract; Z90.710 Acquired absence of both cervix and uterus; Z98.890 Other specified postprocedural states; Z91.041 Radiographic dye allergy status
CPT/HCPCS: 71046; 99283

== ENCOUNTER 2019-01-01 12:44 | Emergency (ER) | payer BC ==
[~2019-01-01] VITALS: Ht 157.5 cm; Wt 79.4 kg
[2019-01-01 13:01] VITALS: BP 152/95
[2019-01-01] MEDS ORDERED: METOCLOPRAMIDE HCL 10 MG/2 ML VIAL. IV ONE (13:15)
[2019-01-01] MEDS ORDERED: KETOROLAC 30 MG/ML VIAL. IV ONE (13:15)
[2019-01-01] MEDS ORDERED: IV NORMAL SALINE 1000ML BAG 1,000 ML IV ONE (13:15)
[2019-01-01] MEDS ORDERED: diphenhydrAMINE 50 MG/ML VIAL IVP ONE (13:15)
--- NOTE | 2019-01-01 13:44 | RAD ---
EXAM: Head CT without contrast. HISTORY: Headache. TECHNIQUE: Computed tomographic images of the head were obtained without contrast. *One or more of the following individualized dose reduction techniques were utilized for this examination: 1. Automated exposure control. 2. Adjustment of the mA and/or kV according to patient size. 3. Use of iterative reconstruction technique. COMPARISON: 07/10/2018. FINDINGS: There is no acute or subacute extra-axial or intraparenchymal hemorrhage. There is no mass effect or midline shift. There is no hydrocephalus. The verma-white matter differentiation pattern is intact. There is focal mucosal thickening or a mucous retention cyst within the right aspect of the sphenoid sinus. The visualized portions the orbits and mastoid air cells are unremarkable. No calvarial lesion is seen. IMPRESSION: No acute intracranial findings. Electronically signed by: Kasie Hemphill MD (01/01/2019 1:40 PM) [place] [id number]
--- NOTE | 2019-01-01 14:08 | PHYS DOC ---
Past Medical History Past Medical History: Arthritis, Depression, GERD, Migraines, Other Additional Past Medical Histor: HELLP Syndrome, PRE-ECLAPSIA, CHRONIC BACK PAIN Past Surgical History: Cholecystectomy, , Hysterectomy, Tubal ligation , Other Additional Past Surgical Histo: KIDNEY STENTS, Partial Hysterectomy Alcohol Use: None Drug Use: None Adult General Chief Complaint Chief Complaint: HEADACHE HPI HPI Patient is a 28 year old female who presents with a headache off-and-on for the past month. The patient denies visual changes. She states that it is primarily located at the back of her neck going up into the crown of her head. She states that she has been under an enormous amount of stress. The patient has no migraine history. She denies nausea or vomiting. She denies fever. She has tried [id number] Excedrin Migraine with little relief. Review of Systems Review of Systems Constitutional: Denies fever or chills [] Eyes: Denies change in visual acuity, redness, or eye pain [] HENT: Denies nasal congestion or sore throat [] Respiratory: Denies cough or shortness of breath [] Cardiovascular: No additional information not addressed in HPI [] GI: Denies abdominal pain, nausea, vomiting, bloody stools or diarrhea [] : Denies dysuria or hematuria [] Musculoskeletal: Denies back pain or joint pain [] Integument: Denies rash or skin lesions [] Neurologic: See history of present illness Endocrine: Denies polyuria or polydipsia [] All other systems were reviewed and found to be within normal limits, except as documented in this note. Current Medications Current Medications Current Medications Medications (Trade) Dose Ordered Sig/Meka Start Time Stop Time Status Last Admin Dose Admin Diphenhydramine HCl (Benadryl) 50 mg 1X ONCE 01/01/19 13:15 01/01/19 13:23 DC 01/01/19 14:20 50 MG Ketorolac Tromethamine (Toradol 30mg Vial) 30 mg 1X ONCE 01/01/19 13:15 01/01/19 13:23 DC 01/01/19 14:20 30 MG Metoclopramide HCl (Reglan Vial) 10 mg 1X ONCE 01/01/19 13:15 01/01/19 13:23 DC 01/01/19 14:20 10 MG Sodium Chloride 1,000 ml @ 1,000 mls/hr 1X ONCE 01/01/19 13:15 01/01/19 14:14 DC 01/01/19 14:19 1,000 MLS/HR Allergies Allergies Allergies Coded Allergies Type Severity Reaction Last Updated Verified I S O L A T I O N *CONTACT* Allergy Unknown 01/03/17 Yes No Known Medication Allergies Allergy Unknown 01/03/17 Yes Physical Exam Physical Exam Constitutional: Well developed, well nourished, no acute distress, non-toxic appearance. [] HENT: Normocephalic, atraumatic, bilateral external ears normal, oropharynx moist, no oral exudates, nose normal. [] Eyes: PERRLA, EOMI, conjunctiva normal, no discharge. [] Neck: Normal range of motion, no tenderness, supple, no stridor. [] Cardiovascular:Heart rate regular rhythm, no murmur [] Lungs & Thorax: Bilateral breath sounds clear to auscultation [] Abdomen: Bowel sounds normal, soft, no tenderness, no masses, no pulsatile masses. [] Skin: Warm, dry, no erythema, no rash. [] Back: No tenderness, no CVA tenderness. [] Extremities: No tenderness, no cyanosis, no clubbing, ROM intact, no edema. [] Neurologic: Alert and oriented X 3, normal motor function, normal sensory function, no focal deficits noted, cranial nerves II through XII grossly intact , cerebellar function is intact [] Psychologic: Affect normal, judgement normal, mood normal. [] Current Patient Data Vital Signs Vital Signs Date Time Temp Pulse Resp B/P (MAP) Pulse Ox O2 Delivery O2 Flow Rate FiO2 01/01/19 13:01 98.2 99 20 152/95 (114) 98 Room Air 98.2 Lab Values Laboratory Tests Test 01/01/19 13:08 POC Urine HCG, Qualitative Hcg negative (Negative) EKG EKG [] Radiology/Procedures Radiology/Procedures []PATIENT: JUSTIN HASTINGS LACCOUNT: [id number]#: [id number] : 1990 LOCATION: ER AGE: 28 SEX: F EXAM STATUS: REG ER ORD. PHYSICIAN: JONNY GUZMAN APRN REASON: headachex 1 month, no migraine hx PROCEDURE: CT HEAD WO CONTRAST EXAM: Head CT without contrast. HISTORY: Headache. TECHNIQUE: Computed tomographic images of the head were obtained without contrast. *One or more of the following individualized dose reduction techniques were utilized for this examination: 1. Automated exposure control. 2. Adjustment of the mA and/or kV according to patient size. 3. Use of iterative reconstruction technique. COMPARISON: 07/10/2018. FINDINGS: There is no acute or subacute extra-axial or intraparenchymal hemorrhage. There is no mass effect or midline shift. There is no hydrocephalus. The verma-white matter differentiation pattern is intact. There is focal mucosal thickening or a mucous retention cyst within the right aspect of the sphenoid sinus. The visualized portions the orbits and mastoid air cells are unremarkable. No calvarial lesion is seen. IMPRESSION: No acute intracranial findings. Electronically signed by: Kasie Patterson MD (01/01/2019 1:40 PM) [facility] DICTATED and SIGNED BY: KASIE PATTERSON MD DATE: 01/01/19 0955 Course & Med Decision Making Course & Med Decision Making Pertinent Labs and Imaging studies reviewed. (See chart for details) []The patient was given Toradol, Benadryl and Reglan in the emergency department. She also received a liter of fluids. She states that her headache is resolved. Dragon Disclaimer Dragon Disclaimer This electronic medical record was generated, in whole or in part, using a voice recognition dictation system. Departure Departure Impression: Primary Impression: Headache Disposition: 01 HOME, SELF-CARE Condition: STABLE Referrals: BIMAL METZ MD (PCP) Patient Instructions: General Headache Without Cause Additional Instructions: Follow-up with primary care for further evaluation and management of this chronic headache. If worsening return to the emergency department. JONNY GUZMAN APRN Jan 01, 2019 14:08
[2019-03-12] MEDS ORDERED: METO25TA4 PO (11:59)
== END 2019-01-01 15:25 | disposition home or self-care (01) ==
LOC: ER 12:44
DX: G43.909 Migraine, unspecified, not intractable, without status migrainosus (principal); M19.90 Unspecified osteoarthritis, unspecified site; F32.9 Major depressive disorder, single episode, unspecified; K21.9 Gastro-esophageal reflux disease without esophagitis; G89.29 Other chronic pain; Z90.49 Acquired absence of other specified parts of digestive tract; Z98.890 Other specified postprocedural states; Z90.710 Acquired absence of both cervix and uterus; Z98.51 Tubal ligation status; Z91.041 Radiographic dye allergy status
CPT/HCPCS: 70450; 81025; 96374; 96375; 99284; J1200; J1885; J2765; J7030

== ENCOUNTER 2019-01-23 04:13 | Emergency (ER) | payer BC ==
[~2019-01-23] VITALS: Ht 157.5 cm; Wt 83.9 kg
[2019-01-23 04:26] VITALS: BP 154/88
[2019-01-23] MEDS ORDERED: PRED20TA PO (04:52)
[2019-01-23] MEDS ORDERED: DIPH50CA PO (04:52)
[2019-01-23] MEDS ORDERED: SULF1TAB24 PO (04:52)
--- NOTE | 2019-01-23 04:53 | PHYS DOC ---
Past Medical History Past Medical History: Arthritis, Depression, GERD, Migraines, Other Additional Past Medical Histor: HELLP Syndrome, PRE-ECLAPSIA, CHRONIC BACK PAIN Past Surgical History: Cholecystectomy, , Hysterectomy, Tubal ligation , Other Additional Past Surgical Histo: KIDNEY STENTS, Partial Hysterectomy Alcohol Use: None Drug Use: None Adult General Chief Complaint Chief Complaint: EYE PROBLEMS [facility] HPI Patient is a 29-year-old female who presents with complaint of swelling below the left eye/lower eyelid that she noticed this morning when she woke up. Patient states that there had been a wasp in her room during the night and is not sure whether or not she was bitten. She does indicate that she has an area on her upper eyelid that stings and breaux. There is also another area just below the area of swelling with stinging and burning. She denies any visual changes. Review of Systems Review of Systems Constitutional: Denies fever or chills [] Eyes: Denies change in visual acuity, redness, or eye pain. Positive swelling/ edema right lower eyelid [] Respiratory: Denies cough or shortness of breath [] Cardiovascular: No additional information not addressed in HPI [] Integument: There is significant swelling to the left lower eyelid[] Neurologic: Denies headache, focal weakness or sensory changes [] Allergies Allergies Allergies Coded Allergies Type Severity Reaction Last Updated Verified I S O L A T I O N *CONTACT* Allergy Unknown 01/03/17 Yes No Known Medication Allergies Allergy Unknown 01/03/17 Yes Physical Exam Physical Exam Constitutional: Well developed, well nourished, no acute distress, non-toxic appearance. [] HENT: Normocephalic, atraumatic, bilateral external ears normal, oropharynx moist, no oral exudates, nose normal. [] Eyes: PERRLA, EOMI, significant edema noted to the left lower eyelid. Transillumination demonstrates findings of clear fluid through lower periorbital tissue [] Neck: Normal range of motion, no tenderness, supple, no stridor. [] Cardiovascular:Heart rate regular rhythm, no murmur [] Lungs & Thorax: Bilateral breath sounds clear to auscultation [] EKG EKG [] Radiology/Procedures Radiology/Procedures [] Course & Med Decision Making Course & Med Decision Making Pertinent Labs and Imaging studies reviewed. (See chart for details) [] Dragon Disclaimer Dragon Disclaimer This electronic medical record was generated, in whole or in part, using a voice recognition dictation system. Departure Departure Impression: Primary Impression: Periorbital edema of left eye Disposition: 01 HOME, SELF-CARE Condition: STABLE Referrals: BIMAL METZ MD (PCP) Patient Instructions: Bee, Wasp, or Hornet Sting, Edema Scripts Diphenhydramine Hcl (DIPHENHYDRAMINE HCL) 50 Mg Capsule 1 CAP PO Q6HRS PRN for eye swelling, #20 CAP 1 Refill Prov: LAVERNE HERNANDEZ Jr. DO 01/23/19 Prednisone (PREDNISONE) 20 Mg Tablet 1 TAB PO BID, #6 TAB Prov: LAVERNE HERNANDEZ Jr. DO 01/23/19 Sulfamethoxazole/Trimethoprim (BACTRIM DS TABLET) 1 Each Tablet 1 TAB PO BID, #20 TAB Prov: LAVERNE HERNANDEZ Jr. DO 01/23/19 LAVERNE HERNANDEZ Jr. DO Jan 23, 2019 04:53
[2019-01-23] MEDS ORDERED: methylPREDNISolone SOD SUCC PF 125 MG/2 ML VIAL. IV ONE (05:00)
[2019-01-23] MEDS ORDERED: diphenhydrAMINE 50 MG/ML VIAL IM ONE (05:00)
[2019-01-23] MEDS ORDERED: methylPREDNISolone SOD SUCC PF 125 MG/2 ML VIAL. IM ONE (05:00)
[2019-01-23] MEDS ORDERED: SMZ/TMP 800/160MG TABLET. PO ONE (05:00)
[2019-01-23] MEDS ORDERED: HYDR-3164 PO (12:21)
[2019-01-23] MEDS ORDERED: FAMO-63 PO (12:21)
[2019-03-12] MEDS ORDERED: METO25TA4 PO (11:59)
== END 2019-01-23 05:17 | disposition home or self-care (01) ==
LOC: ER 04:13
DX: H02.845 Edema of left lower eyelid (principal); M19.90 Unspecified osteoarthritis, unspecified site; F32.9 Major depressive disorder, single episode, unspecified; K21.9 Gastro-esophageal reflux disease without esophagitis; G43.909 Migraine, unspecified, not intractable, without status migrainosus; G89.29 Other chronic pain; Z90.49 Acquired absence of other specified parts of digestive tract; Z98.890 Other specified postprocedural states; Z90.710 Acquired absence of both cervix and uterus; Z98.51 Tubal ligation status; Z91.041 Radiographic dye allergy status
CPT/HCPCS: 96372; 99284; J1200; J2930

== ENCOUNTER 2019-01-23 10:23 | Emergency (ER) | payer BC ==
[~2019-01-23] VITALS: Ht 157.5 cm; Wt 83.9 kg
[~2019-01-23 10:23] MED LIST changes: +DIPH50CA PO; +PRED20TA PO
[2019-01-23 11:22] VITALS: BP 163/91
[2019-01-23] MEDS ORDERED: diphenhydrAMINE 50 MG/ML VIAL IVP ONE (11:30)
[2019-01-23] MEDS ORDERED: DEXAMETHASONE SOD PHOS 20 MG/5 ML VIAL. IV ONE (11:30)
[2019-01-23] MEDS ORDERED: FAMOTIDINE 20 MG/2 ML VIAL IVP ONE (11:30)
[2019-01-23] MEDS ORDERED: FAMO-63 PO (12:21)
[2019-01-23] MEDS ORDERED: HYDR-3164 PO (12:21)
--- NOTE | 2019-01-23 12:22 | PHYS DOC ---
Past Medical History Past Medical History: Arthritis, Depression, GERD, Migraines, Other Additional Past Medical Histor: HELLP Syndrome, PRE-ECLAPSIA, CHRONIC BACK PAIN Past Surgical History: Cholecystectomy, , Hysterectomy, Tubal ligation , Other Additional Past Surgical Histo: KIDNEY STENTS, Partial Hysterectomy Alcohol Use: None Drug Use: None Adult General Chief Complaint Chief Complaint: FACE PROBLEM HPI HPI Patient is a 29 year old female presents with left eye swelling. Patient was seen for same complaint earlier this morning. She went home after being discharged and went to bed. When she woke up she noticed swelling was worse so she reported back to the ER. Patient denies any drainage or discharge from the eye. Nothing has made her pain or swelling better. Her pain is worsened by palpation. Review of Systems Review of Systems Constitutional: Denies fever or chills Eyes: Reports left eye swelling and eye pain. Denies change in visual acuity or redness HENT: Denies nasal congestion or sore throat Respiratory: Denies cough or shortness of breath Cardiovascular: Denies chest pain or palpitations GI: Denies abdominal pain, nausea, vomiting : Denies dysuria or hematuria Musculoskeletal: Denies back pain or joint pain Integument: Denies rash or skin lesions Neurologic: Denies headache or focal weakness Complete systems were reviewed and found to be within normal limits, except as documented in this note. Current Medications Current Medications Current Medications Medications (Trade) Dose Ordered Sig/Meka Start Time Stop Time Status Last Admin Dose Admin Dexamethasone Sodium Phosphate (Decadron) 10 mg 1X ONCE 01/23/19 11:30 01/23/19 11:31 DC 01/23/19 11:35 10 MG Diphenhydramine HCl (Benadryl) 50 mg 1X ONCE 01/23/19 11:30 01/23/19 11:31 DC 01/23/19 11:35 50 MG Famotidine (Pepcid Vial) 20 mg 1X ONCE 01/23/19 11:30 01/23/19 11:31 DC 01/23/19 11:35 20 MG Allergies Allergies Allergies Coded Allergies Type Severity Reaction Last Updated Verified I S O L A T I O N *CONTACT* Allergy Unknown 01/03/17 Yes No Known Medication Allergies Allergy Unknown 01/03/17 Yes Physical Exam Physical Exam Constitutional: Well developed, well nourished, no acute distress, non-toxic appearance. HENT: Normocephalic, atraumatic, bilateral external ears normal, nose normal. Eyes: Left eye periorbital swelling, no erythema, no discharge. Neck: Normal range of motion, supple. Cardiovascular:Heart rate regular rhythm, no murmur Lungs & Thorax: Bilateral breath sounds clear to auscultation, no rhonchi rales or wheezes. Abdomen: Bowel sounds normal, soft, no tenderness. Skin: Warm, dry, no erythema, no rash. Back: No tenderness, no CVA tenderness. Extremities: No clubbing, ROM intact, no edema. Neurologic: Alert and oriented X 3, normal motor function, no focal deficits noted. Psychologic: Affect normal, mood normal. Current Patient Data Vital Signs Vital Signs Date Time Temp Pulse Resp B/P (MAP) Pulse Ox O2 Delivery O2 Flow Rate FiO2 01/23/19 11:22 98.2 112 20 163/91 (115) 94 Room Air 98.2 EKG EKG [] Radiology/Procedures Radiology/Procedures [] Course & Med Decision Making Course & Med Decision Making 29-year-old female presents to the emergency department for left eye swelling. Patient was seen earlier today for similar complaint however she is having worsening of her symptoms. Upon exam there was significant left eye edema, but no signs of infection. Symptomatic treatment provided with interval improvement. IV Benadryl and dexamethasone administered. Upon reexamination patient's symptoms were not continuing to progress. Encourage patient to continue to take previous a prescribed medication as well as newly described Pepcid. Provided patient wit prescription Chloe for pain. Gave patient strict return precautions.Patient stable for discharge with outpatient follow-up with PCP. Discussed findings and plan with patient and family, who acknowledge understanding and agreement. Dragon Disclaimer Dragon Disclaimer This electronic medical record was generated, in whole or in part, using a voice recognition dictation system. Departure Departure Impression: Primary Impression: Periorbital edema of left eye Disposition: 01 HOME, SELF-CARE Condition: STABLE Referrals: BIMAL METZ MD (PCP) Patient Instructions: Edema, [id number] Additional Instructions: Ice affected eye 20 minutes on 20 minutes off for the next 2 days. May use Tylenol and ibuprofen as needed for pain. Make sure to not take Tylenol at the same time as her hydrocodone. Please continue previously prescribed Benadryl and steroids. Scripts Famotidine (PEPCID) 20 Mg Tablet 20 MG PO BID, #10 TAB Prov: OBDULIA RAMOS DO 01/23/19 Hydrocodone/Apap 5-325 (NORCO 5-325 TABLET) 1 Each Tablet 0.5-1 TAB PO PRN Q6HRS PRN for PAIN, #6 TAB 0 Refills Prov: OBDULIA RAMOS DO 01/23/19 OBDULIA RAMOS DO Jan 23, 2019 12:22
[2019-03-12] MEDS ORDERED: METO25TA4 PO (11:59)
== END 2019-01-23 12:30 | disposition home or self-care (01) ==
LOC: ER 10:23
DX: H02.846 Edema of left eye, unspecified eyelid (principal); M19.90 Unspecified osteoarthritis, unspecified site; F32.9 Major depressive disorder, single episode, unspecified; K21.9 Gastro-esophageal reflux disease without esophagitis; G43.909 Migraine, unspecified, not intractable, without status migrainosus; G89.29 Other chronic pain; Z90.49 Acquired absence of other specified parts of digestive tract; Z90.710 Acquired absence of both cervix and uterus; Z98.51 Tubal ligation status; Z91.041 Radiographic dye allergy status
CPT/HCPCS: 96374; 96375; 99284; J1100; J1200; J3490

== ENCOUNTER → 2019-03-06 | Outpatient (CLI) | payer BC ==
[~2019-03-06] MED LIST changes: +FAMO-63 PO; +HYDR-3164 PO; +METO25TA4 PO
[2019-03-06 14:34] LABS: BASO # 0.1 x10^3/uL (0.0-0.2); BASO % 1 % (0-3); EOS # 0.1 x10^3/uL (0.0-0.7); EOS % 1 % (0-3); HEMATOCRIT 43.5 % (36.0-47.0); HEMOGLOBIN 14.7 g/dL (12.0-15.5); LYMPH # 2.9 x10^3/uL (1.0-4.8); LYMPH % 27 % (24-48); MEAN CORPUSCULAR HEMOGLOBIN 31 pg (25-35); MEAN CORPUSCULAR HGB CONC 34 g/dL (31-37); MEAN CORPUSCULAR VOLUME 90 fL (79-100); MONO # 0.7 x10^3/uL (0.0-1.1); MONO % 6 % (0-9); NEUT # 7.4 x10^3uL (1.8-7.7); NEUT % 66 % (31-73); PLATELET COUNT 275 x10^3/uL (140-400); RED BLOOD COUNT 4.82 x10^6/uL (3.50-5.40); WHITE BLOOD COUNT 11.1 x10^3/uL (4.0-11.0)
[2019-03-06 14:40] LABS: PROTHROMBIN TIME PATIENT 11.9 SEC (11.7-14.0)
[2019-03-06 15:28] LABS: BARBITURATES NEG (NEG); BENZODIAZEPINES NEG (NEG); CANNABINOIDS NEG (NEG); COCAINE NEG (NEG); METHADONE NEG (NEG); OPIATES NEG (NEG); PHENCYCLIDINE NEG (NEG)
[2019-03-06 15:29] LABS: ALBUMIN 4.3 g/dL (3.4-5.0); ALBUMIN/GLOBULIN RATIO 1.3 (1.0-1.7); CREATININE 0.7 mg/dL (0.6-1.0); GFR 98.9; POTASSIUM 3.9 mmol/L (3.5-5.1); TOTAL BILIRUBIN 0.5 mg/dL (0.2-1.0); TOTAL PROTEIN 7.6 g/dL (6.4-8.2)
[2019-03-06 15:32] LABS: AMPHETAMINE/METHAMPHETAMINE NEG (NEG)
== END | disposition home or self-care (01) ==
LOC: LAB 14:08
PROVIDERS: ATTEND Psychiatry & Neurology Neurology
DX: G43.019 Migraine without aura, intractable, without status migrainosus (principal)
CPT/HCPCS: 36415; 80053; 80307; 84443; 85025; 85610; 85651

== ENCOUNTER → 2019-03-12 | Outpatient (CLI) | payer BC ==
[~2019-03-12] MED LIST changes: +GADOBUTROL 10 MMOL/10 ML VIAL IV ONE
--- NOTE | 2019-03-12 15:56 | KCIC ---
MRI of the Brain without and with Contrast 03/12/2019 Clinical History: Chronic migraine headaches which are worsening. Technique: Unenhanced T1-weighted sagittal and axial and FLAIR, T2-weighted, gradient echo and diffusion-weighted axial images of the brain were obtained. After the intravenous administration of 9 cc of Magnevist, enhanced T1-weighted axial and coronal images of the brain were obtained. Findings: Comparison is made to the patient's CT scan of the head dated 12/12/2018. Additional comparison is made to the patient's previous MRI of the brain dated 01/02/2017. The ventricles and sulci are within normal limits in size and configuration. No area of significant abnormal signal intensity is seen involving the brain parenchyma. No abnormal area of contrast enhancement is seen. No extra-axial fluid collection is noted. There is no MRI evidence of acute ischemia/infarction. Mild to moderate mucosal thickening is seen throughout the paranasal sinuses. There are minimal bilateral mastoid effusions. Normal flow voids are seen within the major vascular structures surrounding the brain parenchyma. Impression: 1. Negative MRI of the brain. 2. Mild paranasal sinus and mastoid disease. Electronically signed by: Darin Garcia MD (03/12/2019 3:53 PM) [id number]
== END | disposition home or self-care (01) ==
LOC: KCIC MRI 10:37
PROVIDERS: ATTEND Psychiatry & Neurology Neurology
DX: H74.8X3 Other specified disorders of middle ear and mastoid, bilateral (principal); G93.2 Benign intracranial hypertension
CPT/HCPCS: 70553; A9585

== ENCOUNTER 2019-07-15 09:17 | Emergency (ER) | payer SELFPAY ==
[~2019-07-15] VITALS: Ht 157.5 cm; Wt 88.5 kg
[~2019-07-15 09:17] MED LIST changes: -GADOBUTROL 10 MMOL/10 ML VIAL IV ONE
[2019-07-15 09:54] VITALS: BP 138/90
--- NOTE | 2019-07-15 10:48 | PHYS DOC ---
Past Medical History Past Medical History: Arthritis, Depression, GERD, Migraines, Other Additional Past Medical Histor: HELLP Syndrome, PRE-ECLAPSIA, CHRONIC BACK PAIN Past Surgical History: Cholecystectomy, , Hysterectomy, Tubal ligation, Other Additional Past Surgical Histo: KIDNEY STENTS, Partial Hysterectomy Smoking: Cigarettes, Less than 1pk/day Alcohol Use: None Drug Use: None Adult General Chief Complaint Chief Complaint: SORE THROAT HPI HPI Patient is a 29 year old female who presents to the emergency department with complaints of bilateral ear fullness, a sore throat that is worse at night, a productive cough with clear sputum, nausea, and one episode of post tussive emesis that began 2 days ago. Patient states that she has similar symptoms every year around this time. She denies any fever, abdominal pain, diarrhea, rash, shortness of breath, wheezing, chest pain, dizziness, headache, or vision changes. She denies any recent sick contacts. She denies any pain at this time. Review of Systems Review of Systems Constitutional: Denies fever or chills [] Eyes: Denies change in visual acuity, redness, or eye pain [] HENT: see HPI Respiratory: Denies wheezing or shortness of breath; see HPI Cardiovascular: No additional information not addressed in HPI [] GI: Denies abdominal pain, bloody stools or diarrhea; see HPI : Denies dysuria or hematuria [] Musculoskeletal: Denies back pain or joint pain [] Integument: Denies rash or skin lesions [] Neurologic: Denies headache, focal weakness or sensory changes [] Complete systems were reviewed and found to be within normal limits, except as documented in this note. Allergies Allergies Allergies Coded Allergies Type Severity Reaction Last Updated Verified I S O L A T I O N *CONTACT* Allergy Unknown 01/03/17 Yes No Known Medication Allergies Allergy Unknown 01/03/17 Yes Physical Exam Physical Exam Constitutional: Well developed, well nourished, no acute distress, non-toxic appearance. [] HENT: Normocephalic, atraumatic, bilateral external ears normal, bilateral TMs normal, cobblestone appearance of posterior pharynx, oropharynx moist, no oral exudates, nasal turbinates edematous and erythematous bilat Eyes: PERRLA, EOMI, conjunctiva normal, no discharge. [] Neck: Normal range of motion, no tenderness, supple, no stridor. [] Cardiovascular:Heart rate regular rhythm, no murmur [] Lungs & Thorax: Bilateral breath sounds clear to auscultation [] Skin: Warm, dry, no erythema, no rash. [] Back: No tenderness, Extremities: No cyanosis, ROM intact, no edema. [] Neurologic: Alert and oriented X 3, no focal deficits noted. [] Psychologic: Affect normal, judgement normal, mood normal. [] Current Patient Data Vital Signs Vital Signs Date Time Temp Pulse Resp B/P (MAP) Pulse Ox O2 Delivery O2 Flow Rate FiO2 07/15/19 09:54 98.2 91 18 138/90 (106) 100 Room Air 98.2 EKG EKG [] Radiology/Procedures Radiology/Procedures [] Course & Med Decision Making Course & Med Decision Making Pertinent Labs and Imaging studies reviewed. (See chart for details) dx: medical screening exam A medical screening exam was performed, patient was found to have no emergent medical condition. The plan of care would've included: prescriptions. However, the patient eloped after talking with registration. [] Dragon Disclaimer Dragon Disclaimer This electronic medical record was generated, in whole or in part, using a voice recognition dictation system. Departure Departure Impression: Primary Impression: Encounter for medical screening examination Disposition: 01 HOME, SELF-CARE (eloped after speaking to registration) Condition: STABLE Referrals: BIMAL METZ MD (PCP) ARTEM BERGERON APRN Jul 15, 2019 10:48
== END 2019-07-15 10:26 | disposition home or self-care (01) ==
LOC: ER 09:17
DX: J02.9 Acute pharyngitis, unspecified (principal); R05 Cough; R11.10 Vomiting, unspecified; M19.90 Unspecified osteoarthritis, unspecified site; F32.9 Major depressive disorder, single episode, unspecified; K21.9 Gastro-esophageal reflux disease without esophagitis; G43.909 Migraine, unspecified, not intractable, without status migrainosus; G89.29 Other chronic pain; F17.210 Nicotine dependence, cigarettes, uncomplicated; Z90.49 Acquired absence of other specified parts of digestive tract; Z98.890 Other specified postprocedural states; Z90.710 Acquired absence of both cervix and uterus; Z98.51 Tubal ligation status; Z91.041 Radiographic dye allergy status
CPT/HCPCS: 99281

== ENCOUNTER 2019-10-04 17:07 | Emergency (ER) | payer SELFPAY ==
[~2019-10-04] VITALS: Ht 157.5 cm; Wt 89.4 kg
[2019-10-04] MEDS ORDERED: KETOROLAC 15 MG/ML VIAL. IVP ONE (17:45)
[2019-10-04] MEDS ORDERED: IPRATRPIUM/ALBUTEROL 0.5/2.5MG 3 ML NEBU. NEB ONE (17:45)
[2019-10-04] MEDS ORDERED: IV NORMAL SALINE 1000ML BAG 1,000 ML IV ONE (17:45)
--- NOTE | 2019-10-04 17:54 | PHYS DOC ---
Past Medical History Past Medical History: Arthritis, Depression, GERD, Migraines, Other Additional Past Medical Histor: HELLP Syndrome, PRE-ECLAPSIA, CHRONIC BACK PAIN (SHANICE MELGOZA APRN) Past Surgical History: Cholecystectomy, , Hysterectomy, Tubal ligation, Other Additional Past Surgical Histo: KIDNEY STENTS, Partial Hysterectomy (SHANICE MELGOZA APRN) Alcohol Use: None Drug Use: None (SHANICE MELGOZA APRN) Attending Signature I have participated in the care of this patient and I have reviewed and agree with all pertinent clinical information above including history, exam, and recommendations. (OMAR HASTINGS MD) Adult General Chief Complaint Chief Complaint: SHORTNESS OF BREATH HPI HPI Patient is a 29 year old [female] who presents with [shortness of breath, states she had been diagnosed with pneumonia on 09/[address] [facility], had been started on an antibiotic and steroids. States she has finished her steroids, but is still taking her antibiotics but does not know what is and wher e she is taking. Reports she just has problems taking breaths in. States she has not taken any breathing treatments, as she cannot afford them. Denies any recent trauma, denies any recent surgery, denies fevers. (SHANICE MELGOZA APRN) Review of Systems Review of Systems Constitutional: Denies fever or chills [] Eyes: Denies change in visual acuity, redness, or eye pain [] HENT: Denies nasal congestion or sore throat [] Respiratory: Reports cough or shortness of breath [] Cardiovascular: No additional information not addressed in HPI [] GI: Denies abdominal pain, nausea, vomiting, bloody stools or diarrhea [] : Denies dysuria or hematuria [] Musculoskeletal: Denies back pain or joint pain [] Integument: Denies rash or skin lesions [] Neurologic: Denies headache, focal weakness or sensory changes [] Endocrine: Denies polyuria or polydipsia [] All other systems were reviewed and found to be within normal limits, except as documented in this note. (SHANICE MELGOZA APRN) Current Medications Current Medications Current Medications Medications (Trade) Dose Ordered Sig/Meka Start Time Stop Time Status Last Admin Dose Admin Albuterol/ Ipratropium (Duoneb) 3 ml 1X ONCE 10/04/19 17:45 10/04/19 17:46 DC 10/04/19 18:10 3 ML Ketorolac Tromethamine (Toradol 15mg Vial) 15 mg 1X ONCE 10/04/19 17:45 10/04/19 17:46 DC 10/04/19 18:47 15 MG Methylprednisolone Sodium Succinate (SOLU-Medrol 125MG VIAL) 125 mg 1X ONCE 10/04/19 20:15 10/04/19 20:36 DC 10/04/19 20:35 125 MG Sodium Chloride 1,000 ml @ 1,000 mls/hr 1X ONCE 10/04/19 17:45 10/04/19 18:44 DC 10/04/19 18:47 1,000 MLS/HR (OMAR HASTINGS MD) Allergies Allergies Allergies Coded Allergies Type Severity Reaction Last Updated Verified I S O L A T I O N *CONTACT* Allergy Unknown 01/03/17 Yes No Known Medication Allergies Allergy Unknown 01/03/17 Yes (OMAR HASTINGS MD) Physical Exam Physical Exam Constitutional: Well developed, well nourished, no acute distress, non-toxic appearance. Conversational multiple word sentences[] HENT: Normocephalic, atraumatic, bilateral external ears normal, oropharynx moist, no oral exudates, nose normal. Tonsils 0 [] Eyes: PERRLA, EOMI, conjunctiva normal, no discharge. [] Neck: Normal range of motion, no tenderness, supple, no stridor. [] Cardiovascular:Heart rate regular and tachycardic rhythm, no murmur [] Lungs & Thorax: Bilateral wheezing noted, left worse than right[] Abdomen: Bowel sounds normal, soft, no tenderness, no masses, no pulsatile masses. [] Skin: Warm, dry, no erythema, no rash. [] Back: No tenderness, no CVA tenderness. [] Extremities: No tenderness, no cyanosis, no clubbing, ROM intact, no edema. [] Neurologic: Alert and oriented X 3, normal motor function, normal sensory function, no focal deficits noted. [] Psychologic: Affect normal, judgement normal, mood normal. [] (SHANICE MELGOZA APRN) Current Patient Data Vital Signs Vital Signs Date Time Temp Pulse Resp B/P (MAP) Pulse Ox O2 Delivery O2 Flow Rate FiO2 10/04/19 20:43 92 127/72 (90) Nasal Cannula 1.0 10/04/19 19:13 36 95 10/04/19 17:29 98.4 98.4 (OMAR HASTINGS MD) Lab Values Laboratory Tests Test 10/04/19 18:32 White Blood Count 10.6 x10^3/uL (4.0-11.0) Red Blood Count 4.46 x10^6/uL (3.50-5.40) Hemoglobin 13.7 g/dL (12.0-15.5) Hematocrit 40.3 % (36.0-47.0) Mean Corpuscular Volume 90 fL (79-100) Mean Corpuscular Hemoglobin 31 pg (25-35) Mean Corpuscular Hemoglobin Concent 34 g/dL (31-37) Red Cell Distribution Width 12.4 % (11.5-14.5) Platelet Count 317 x10^3/uL (140-400) Neutrophils (%) (Auto) 71 % (31-73) Lymphocytes (%) (Auto) 22 % (24-48) L Monocytes (%) (Auto) 6 % (0-9) Eosinophils (%) (Auto) 1 % (0-3) Basophils (%) (Auto) 1 % (0-3) Neutrophils # (Auto) 7.5 x10^3/uL (1.8-7.7) Lymphocytes # (Auto) 2.3 x10^3/uL (1.0-4.8) Monocytes # (Auto) 0.6 x10^3/uL (0.0-1.1) Eosinophils # (Auto) 0.1 x10^3/uL (0.0-0.7) Basophils # (Auto) 0.1 x10^3/uL (0.0-0.2) Sodium Level 141 mmol/L (136-145) Potassium Level 3.4 mmol/L (3.5-5.1) L Chloride Level 104 mmol/L (98-107) Carbon Dioxide Level 30 mmol/L (21-32) Anion Gap 7 (6-14) Blood Urea Nitrogen 13 mg/dL (7-20) Creatinine 0.7 mg/dL (0.6-1.0) Estimated GFR (Cockcroft-Gault) 98.9 Glucose Level 112 mg/dL (70-99) H Lactic Acid Level 1.1 mmol/L (0.4-2.0) Calcium Level 8.7 mg/dL (8.5-10.1) Laboratory Tests 10/04/19 18:32 Laboratory Tests 10/04/19 18:32 (OMAR HASTINGS MD) Lab Values Laboratory Tests Test 10/04/19 18:32 White Blood Count 10.6 x10^3/uL (4.0-11.0) Red Blood Count 4.46 x10^6/uL (3.50-5.40) Hemoglobin 13.7 g/dL (12.0-15.5) Hematocrit 40.3 % (36.0-47.0) Mean Corpuscular Volume 90 fL (79-100) Mean Corpuscular Hemoglobin 31 pg (25-35) Mean Corpuscular Hemoglobin Concent 34 g/dL (31-37) Red Cell Distribution Width 12.4 % (11.5-14.5) Platelet Count 317 x10^3/uL (140-400) Neutrophils (%) (Auto) 71 % (31-73) Lymphocytes (%) (Auto) 22 % (24-48) L Monocytes (%) (Auto) 6 % (0-9) Eosinophils (%) (Auto) 1 % (0-3) Basophils (%) (Auto) 1 % (0-3) Neutrophils # (Auto) 7.5 x10^3/uL (1.8-7.7) Lymphocytes # (Auto) 2.3 x10^3/uL (1.0-4.8) Monocytes # (Auto) 0.6 x10^3/uL (0.0-1.1) Eosinophils # (Auto) 0.1 x10^3/uL (0.0-0.7) Basophils # (Auto) 0.1 x10^3/uL (0.0-0.2) Sodium Level 141 mmol/L (136-145) Potassium Level 3.4 mmol/L (3.5-5.1) L Chloride Level 104 mmol/L (98-107) Carbon Dioxide Level 30 mmol/L (21-32) Anion Gap 7 (6-14) Blood Urea Nitrogen 13 mg/dL (7-20) Creatinine 0.7 mg/dL (0.6-1.0) Estimated GFR (Cockcroft-Gault) 98.9 Glucose Level 112 mg/dL (70-99) H Lactic Acid Level 1.1 mmol/L (0.4-2.0) Calcium Level 8.7 mg/dL (8.5-10.1) Laboratory Tests 10/04/19 18:32 Laboratory Tests 10/04/19 18:32 (SHANICE MELGOZA APRN) EKG EKG [] (SHANICE MELGOZA APRN) Radiology/Procedures Radiology/Procedures [] (SHANICE MELGOZA APRN) Course & Med Decision Making Course & Med Decision Making Pertinent Labs and Imaging studies reviewed. (See chart for details) [Following breathing treatments and steroids, patient reports she does feel better at this time. Reports she feels good enough and is ready to go home. Will have patient continue her antibiotics Continue her home breathing treatments Will Rx for Guaifenasin] (SHANICE MELGOZA APRN) Dragon Disclaimer Dragon Disclaimer This electronic medical record was generated, in whole or in part, using a voice recognition dictation system. (SHANICE MELGOZA APRN) Departure Departure Impression: Primary Impression: Pneumonia Disposition: 01 HOME, SELF-CARE Condition: GOOD Referrals: BIMAL METZ MD (PCP) Patient Instructions: Pneumonia, Adult Additional Instructions: Continue taking the antibiotics that you were previously given. Take these for the entire duration. Continue to use her breathing treatments as he had been The cough medication as prescribed and make sure drinking plenty of fluids with this to make sure you're able to cough up the mucus in her chest Scripts Guaifenesin (GUAIFENESIN) 400 Mg Tablet 1 TAB PO TID for cough for 5 Days, #15 TAB 0 Refills Prov: SHANICE MLEGOZA APRN 10/04/19 Problem Qualifiers Primary Impression: Pneumonia Pneumonia type: due to unspecified organism Laterality: left Lung location: lower lobe of lung Qualified Codes: J18.9 - Pneumonia, unspecified organism SHANICE MELGOZA APRN Oct 04, 2019 17:54 OMAR HASTINGS MD Oct 05, 2019 02:34
[2019-10-04 18:47] LABS: BASO # 0.1 x10^3/uL (0.0-0.2); BASO % 1 % (0-3); EOS # 0.1 x10^3/uL (0.0-0.7); EOS % 1 % (0-3); HEMATOCRIT 40.3 % (36.0-47.0); HEMOGLOBIN 13.7 g/dL (12.0-15.5); LYMPH # 2.3 x10^3/uL (1.0-4.8); LYMPH % 22 % (24-48); MEAN CORPUSCULAR HEMOGLOBIN 31 pg (25-35); MEAN CORPUSCULAR HGB CONC 34 g/dL (31-37); MEAN CORPUSCULAR VOLUME 90 fL (79-100); MONO # 0.6 x10^3/uL (0.0-1.1); MONO % 6 % (0-9); NEUT # 7.5 x10^3/uL (1.8-7.7); NEUT % 71 % (31-73); PLATELET COUNT 317 x10^3/uL (140-400); RED BLOOD COUNT 4.46 x10^6/uL (3.50-5.40); RED CELL DISTRIBUTION WIDTH 12.4 % (11.5-14.5); WHITE BLOOD COUNT 10.6 x10^3/uL (4.0-11.0)
[2019-10-04 18:59] LABS: CALCIUM 8.7 mg/dL (8.5-10.1); CREATININE 0.7 mg/dL (0.6-1.0); GFR 98.9; POTASSIUM 3.4 mmol/L (3.5-5.1)
[2019-10-04] MEDS ORDERED: methylPREDNISolone SOD SUCC PF 125 MG/2 ML VIAL. IV ONE (20:15)
[2019-10-04 20:43] VITALS: BP 127/72
[2019-10-04] MEDS ORDERED: GUAI400T63 PO (20:48)
--- NOTE | 2019-10-04 22:26 | RAD ---
EXAM: PA and Lateral Views of the Chest DATE: 10/04/2019 5:48 PM INDICATION: Dyspnea COMPARISON: 11/17/2018, 05/15/2018 FINDINGS: Right hilar and lung base airspace opacities may represent developing consolidative process such as pneumonia, new compared to 11/17/2018. Heart is not enlarged. Mediastinal and hilar contours are normal. No pleural effusion or pneumothorax. Electronically signed by: Gerber Smith MD (10/04/2019 10:23 PM) [place] [id number]
== END 2019-10-04 21:04 | disposition home or self-care (01) ==
LOC: ER 17:07
DX: J18.9 Pneumonia, unspecified organism (principal); M19.90 Unspecified osteoarthritis, unspecified site; F32.9 Major depressive disorder, single episode, unspecified; K21.9 Gastro-esophageal reflux disease without esophagitis; G43.909 Migraine, unspecified, not intractable, without status migrainosus; G89.29 Other chronic pain; Z90.89 Acquired absence of other organs; Z90.49 Acquired absence of other specified parts of digestive tract; Z90.710 Acquired absence of both cervix and uterus; Z98.51 Tubal ligation status; Z98.890 Other specified postprocedural states; Z79.899 Other long term (current) drug therapy; Z91.048 Other nonmedicinal substance allergy status
CPT/HCPCS: 36415; 71046; 80048; 83605; 85025; 94640; 96374; 96375; 99285; J1885; J2930; J7030; J7620

== ENCOUNTER 2020-11-01 13:55 | Emergency (ER) | payer OTHER ==
[~2020-11-01] VITALS: Ht 157.5 cm; Wt 88.0 kg
[~2020-11-01 13:55] MED LIST changes: +GUAI400T78 PO; +MECL-75 PO; -MECL25TA3 PO
[2020-11-01 14:29] VITALS: BP 148/87
[2020-11-01] MEDS ORDERED: CYCL5TAB PO (14:40)
[2020-11-01] MEDS ORDERED: IBUP-1007 PO (14:40)
[2020-11-01] MEDS ORDERED: HYDR-2761 PO (14:41)
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
== END 2020-11-01 15:25 | disposition home or self-care (01) ==
LOC: ER 13:55
DX: S16.1XXA Strain of muscle, fascia and tendon at neck level, initial encounter (principal); M54.6 Pain in thoracic spine; M19.90 Unspecified osteoarthritis, unspecified site; F32.9 Major depressive disorder, single episode, unspecified; K21.9 Gastro-esophageal reflux disease without esophagitis; G43.909 Migraine, unspecified, not intractable, without status migrainosus; G89.29 Other chronic pain; F17.200 Nicotine dependence, unspecified, uncomplicated; Z90.49 Acquired absence of other specified parts of digestive tract; Z90.710 Acquired absence of both cervix and uterus; Z98.51 Tubal ligation status; Z98.890 Other specified postprocedural states; V98.8XXA Other specified transport accidents, initial encounter; Y93.89 Activity, other specified; Y92.89 Other specified places as the place of occurrence of the external cause; Y99.8 Other external cause status
CPT/HCPCS: 70450; 72072; 72125; 99285

== ENCOUNTER 2021-06-05 15:12 | Emergency (ER) | payer MEDICAID, OTHER ==
[~2021-06-05] VITALS: Ht 157.5 cm; Wt 89.9 kg
[~2021-06-05 15:12] MED LIST changes: +CYCL5TAB PO; +HYDR-2761 PO; +IBUP-1007 PO
[2021-06-05] MEDS ORDERED: fentaNYL PF VIAL 100 MCG/2 ML VIAL IVP ONE (16:00)
[2021-06-05] MEDS ORDERED: ONDANSETRON PF 4 MG/2 ML VIAL. IVP ONE (16:00)
[2021-06-05] MEDS ORDERED: IV NORMAL SALINE 1000ML BAG 1,000 ML IV SCH (16:00)
[2021-06-05 16:04] LABS: BILIRUBIN,URINE NEGATIVE (NEG); CLARITY,URINE CLEAR; COLOR,URINE YELLOW; NITRITE,URINE NEGATIVE (NEG); PH,URINE 5.5 (<5.0-8.0); PROTEIN,URINE NEGATIVE (NEG-TRACE); UROBILINOGEN,URINE 0.2 mg/dL (0.2 mg/dL)
[2021-06-05 16:14] LABS: BACTERIA,URINE 0 /HPF (0-FEW); RBC,URINE RARE /HPF (0-2)
[2021-06-05 16:21] LABS: BASO # 0.1 x10^3/uL (0.0-0.2); BASO % 1 % (0-3); EOS # 0.1 x10^3/uL (0.0-0.7); EOS % 2 % (0-3); HEMATOCRIT 40.8 % (36.0-47.0); HEMOGLOBIN 14.4 g/dL (12.0-15.5); LYMPH % 22 % (24-48); MEAN CORPUSCULAR HEMOGLOBIN 33 pg (25-35); MEAN CORPUSCULAR HGB CONC 35 g/dL (31-37); MEAN CORPUSCULAR VOLUME 93 fL (79-100); MONO # 0.5 x10^3/uL (0.0-1.1); MONO % 5 % (0-9); NEUT # 6.5 x10^3/uL (1.8-7.7); NEUT % 71 % (31-73); PLATELET COUNT 254 x10^3/uL (140-400); RED BLOOD COUNT 4.41 x10^6/uL (3.50-5.40); RED CELL DISTRIBUTION WIDTH 12.3 % (11.5-14.5); WHITE BLOOD COUNT 9.2 x10^3/uL (4.0-11.0)
--- NOTE | 2021-06-05 16:24 | PHYS DOC ---
Past Medical History Past Medical History: Arthritis, Depression, GERD, Migraines, Other Additional Past Medical Histor: HELLP Syndrome, PRE-ECLAPSIA, CHRONIC BACK PAIN Past Surgical History: Cholecystectomy, , Hysterectomy, Tubal ligation, Other Additional Past Surgical Histo: KIDNEY STENTS, Partial Hysterectomy Smoking Status: Current Every Day Smoker Additional Information: < 0.5 PPD Alcohol Use: Occasionally Drug Use: None General Adult EDM: Chief Complaint: BACK PAIN - NO INJURY HPI: HPI: Patient is a 31 year old female who presents with right and left back pain in the flank area for last 3 weeks is getting worse. She states that sharp stabbing. States she started vomiting today. States she has not been going to work because of it. She states she has been taking 5 ibuprofen at a time. She has had kidney stones in the past. Patient has a history of smoking, , hysterectomy, arthritis, GERD, help syndrome, kidney stints and partial hysterectomy. She rates his pain at a 9 out of 10. Review of Systems: Review of Systems: Constitutional: Denies fever or chills. [] Eyes: Denies change in visual acuity. [] HENT: Denies nasal congestion or sore throat. [] Respiratory: Denies cough or shortness of breath. [] Cardiovascular: Denies chest pain or edema. [] GI: Denies abdominal pain, nausea, vomiting, bloody stools or diarrhea. [] : Denies dysuria. [] Musculoskeletal: + Bilateral flank back pain or denies joint pain. [] Integument: Denies rash. [] Neurologic: Denies headache, focal weakness or sensory changes. [] Endocrine: Denies polyuria or polydipsia. [] Lymphatic: Denies swollen glands. [] Psychiatric: Denies depression or anxiety. [] Heart Score: C/O Chest Pain: No Risk Factors: Risk Factors: DM, Current or recent (<one month) smoker, HTN, HLP, family history of CAD, obesity. Risk Scores: Score 0 - 3: 2.5% MACE over next 6 weeks - Discharge Home Score 4 - 6: 20.3% MACE over next 6 weeks - Admit for Clinical Observation Score 7 - 10: 72.7% MACE over next 6 weeks - Early Invasive Strategies Current Medications: Current Medications Medications (Trade) Dose Ordered Sig/Meka Start Time Stop Time Status Last Admin Dose Admin Fentanyl Citrate (Fentanyl 2ml Vial) 50 mcg 1X ONCE 06/05/21 16:00 06/05/21 16:04 DC Ondansetron HCl (Zofran) 4 mg 1X ONCE 06/05/21 16:00 06/05/21 16:04 DC Sodium Chloride 1,000 ml @ 1,000 mls/hr Q1H 06/05/21 16:00 06/05/21 16:59 Allergies: Allergies: Allergies Coded Allergies Type Severity Reaction Last Updated Verified diphenhydramine Allergy Intermediate Unknown 06/05/21 Yes I S O L A T I O N *CONTACT* Allergy Unknown 01/03/17 Yes Physical Exam: PE: Constitutional: Well developed, well nourished, no acute distress, non-toxic appearance. [] HENT: Normocephalic, atraumatic, bilateral external ears normal, oropharynx moist, no oral exudates, nose normal. [] Eyes: PERRLA, EOMI, conjunctiva normal, no discharge. [] Neck: Normal range of motion, no tenderness, supple, no stridor. [] Cardiovascular:Heart rate regular rhythm, no murmur [] Lungs & Thorax: Bilateral breath sounds clear to auscultation [] Abdomen: Bowel sounds normal, soft, no tenderness, no masses, no pulsatile masses. [] Skin: Warm, dry, no erythema, no rash. [] Back: No tenderness, no CVA tenderness. [] Extremities: No tenderness, no cyanosis, no clubbing, ROM intact, no edema. [] Neurologic: Alert and oriented X 3, normal motor function, normal sensory function, no focal deficits noted. [] Psychologic: Affect normal, judgement normal, mood normal. [] Normal physical exam Current Patient Data: Labs: Laboratory Tests Test 06/05/21 15:52 POC Urine HCG, Qualitative Hcg negative (Negative) Vital Signs: Vital Signs Date Time Temp Pulse Resp B/P (MAP) Pulse Ox O2 Delivery O2 Flow Rate FiO2 06/05/21 15:37 98.1 106 19 134/85 (107) 97 Room Air 98.1 EKG: EKG: [] Radiology/Procedures: Radiology/Procedures: [] Impression: [facility] [address] [place] [address] IMAGING REPORT Signed PATIENT: JUSTIN HASTINGS ACCOUNT: [id number] : 1990 LOCATION: ER AGE: 31 SEX: F EXAM STATUS: REG ER ORD. PHYSICIAN: MIL REYES APRN REASON: bilateral flank pain PROCEDURE: CT ABDOMEN PELVIS WO CONTRAST CT abdomen pelvis without contrast dated 06/05/2021. COMPARISON: 11/29/2016. Clinical data indication: Bilateral flank pain. TECHNIQUE: Contiguous axial imaging the abdomen pelvis performed without the administration of IV or contrast. One or more of the following individualized dose reduction techniques were utilized for this examination: 1. Automated exposure control 2. Adjustment of the mA and/or kV according to patient size 3. Use of iterative reconstruction technique. FINDINGS: Limited images of the lung bases are clear. Heart size within normal limits. No pleural or pericardial effusion. Solid abdominal viscera not well evaluated in the absence of contrast material. No apparent attenuation abnormality of the liver or spleen. Pancreas, right adrenal gland unremarkable. There is a 2 cm nodular focus at the left adrenal gland that shows Hounsfield value of -19, likely adrenal adenoma. Some cortical scarring at the lower pole right kidney with few small calcifications. There are couple of tiny punctate calcific foci at the mid to lower pole left kidney. No ureteral stone or hydronephrosis. Unopacified GI tract normal in caliber and contour. No bowel wall thickening. The appendix is normal in caliber. No ascites or lymphadenopathy. Abdominal aorta normal in caliber. Small umbilical hernia containing only fat. Images the pelvis show nondistended urinary bladder. Uterus and adnexa are unremarkable. No free fluid or pelvic adenopathy. Bone windows show no acute finding. Multilevel spondylosis. IMPRESSION: 1. Bilateral nephrolithiasis, nonobstructive. Cortical scarring at the lower pole right kidney, unchanged. 2. Otherwise no acute findings. Normal appendix. 3. Left adrenal adenoma. 4. Small umbilical hernia containing only fat. Electronically signed by: Anderson Worthy MD (06/05/2021 4:28 PM) [facility] [place] DICTATED and SIGNED BY: ANDERSON WORTHY MD DATE: 06/05/21 [id number] [facility] [address] [place] [address] IMAGING REPORT Signed PATIENT: JUSTIN HASTINGS ACCOUNT: [id number] : 1990 LOCATION: ER AGE: 31 SEX: F EXAM STATUS: REG ER ORD. PHYSICIAN: MIL REYES APRN REASON: vomiting PROCEDURE: PORTABLE CHEST 1V Single view chest dated 06/05/2021 4:41 PM: COMPARISON: 10/04/2019 Clinical Indication: Vomiting. Findings: Single upright portable exam of the chest was performed. Heart size and mediastinal contours are within normal limits. Lungs are clear. No consolidation or pleural effusion. No pneumothorax. IMPRESSION: No acute radiographic abnormality. Electronically signed by: Anderson Worthy MD (06/05/2021 4:41 PM) [facility] [place] DICTATED and SIGNED BY: ANDERSON WORTHY MD DATE: 06/05/21 [id number] 0 Course & Med Decision Making: Course & Med Decision Making Pertinent Labs and Imaging studies reviewed. (See chart for details) See HPI. Alert and oriented x4. Ambulatory steady gait. Skin pink warm and dry. Abdomen soft and nontender. Skin pink warm and dry. Afebrile. [] Disha Disclaimer: Disha Disclaimer: This electronic medical record was generated, in whole or in part, using a voice recognition dictation system. Departure Departure Impression: Primary Impression: Back pain Qualified Codes: M54.9 - Dorsalgia, unspecified Disposition: 01 HOME / SELF CARE / HOMELESS Condition: STABLE Referrals: NO PCP (PCP) Patient Instructions: Flank Pain, Muscle Strain Additional Instructions: Follow-up with your primary care provider. Use a heating pad. Drink plenty of fluids. If you cannot keep down any fluids or your pain worsens you need to return to emergency room. Scripts Hydrocodone Bit/Acetaminophen (HYDROCODONE-APAP 5-325 ) 1 Tab Tablet 1 TAB PO PRN Q6HRS PRN for PAIN, #10 TAB 0 Refills Prov: MIL REYES APRN 06/05/21 Orphenadrine Citrate (ORPHENADRINE CITRATE) 100 Mg Tablet.er 1 TAB PO BID, #14 TAB 1 Refill Prov: MIL REYES APRN 06/05/21 MIL REYES APRN Jun 05, 2021 16:24
--- NOTE | 2021-06-05 16:30 | RAD ---
CT abdomen pelvis without contrast dated 06/05/2021. COMPARISON: 11/29/2016. Clinical data indication: Bilateral flank pain. TECHNIQUE: Contiguous axial imaging the abdomen pelvis performed without the administration of IV or contrast. One or more of the following individualized dose reduction techniques were utilized for this examinat ion: 1. Automated exposure control 2. Adjustment of the mA and/or kV according to patient size 3. Use of iterative reconstruction technique. FINDINGS: Limited images of the lung bases are clear. Heart size within normal limits. No pleural or pericardia l effusion. Solid abdominal viscera not well evaluated in the absence of contrast material. No apparent attenuati on abnormality of the liver or spleen. Pancreas, right adrenal gland unremarkable. There is a 2 cm no dular focus at the left adrenal gland that shows Hounsfield value of -19, likely adrenal adenoma. Some cortical scarring at the lower pole right kidney with few small calcifications. There are couple of tiny punctate calcific foci at the mid to lower pole left kidney. No ureteral stone or hydronephr osis. Unopacified GI tract normal in caliber and contour. No bowel wall thickening. The appendix is normal in caliber. No ascites or lymphadenopathy. Abdominal aorta normal in caliber. Small umbilical hernia containing only fat. Images the pelvis show nondistended urinary bladder. Uterus and adnexa are unremarkable. No free flui d or pelvic adenopathy. Bone windows show no acute finding. Multilevel spondylosis. IMPRESSION: 1. Bilateral nephrolithiasis, nonobstructive. Cortical scarring at the lower pole right kidney, uncha nged. 2. Otherwise no acute findings. Normal appendix. 3. Left adrenal adenoma. 4. Small umbilical hernia containing only fat. Electronically signed by: Anderson Worthy MD (06/05/2021 4:28 PM) [facility]
[2021-06-05 16:34] LABS: CALCIUM 8.8 mg/dL (8.5-10.1); CREATININE 0.7 mg/dL (0.6-1.0); GFR 97.6; POTASSIUM 3.9 mmol/L (3.5-5.1)
--- NOTE | 2021-06-05 16:43 | RAD ---
Single view chest dated 06/05/2021 4:41 PM: COMPARISON: 10/04/2019 Clinical Indication: Vomiting. Findings: Single upright portable exam of the chest was performed. Heart size and mediastinal contours are with in normal limits. Lungs are clear. No consolidation or pleural effusion. No pneumothorax. IMPRESSION: No acute radiographic abnormality. Electronically signed by: Anderson Worthy MD (06/05/2021 4:41 PM) [facility]
[2021-06-05] MEDS ORDERED: ORPH100T PO ×2 (16:52→17:21)
[2021-06-05] MEDS ORDERED: HYDR-2761 PO ×2 (16:52→17:21)
[2021-06-05 17:19] LABS: ALBUMIN 3.6 g/dL (3.4-5.0); ALBUMIN/GLOBULIN RATIO 1.3 (1.0-1.7); TOTAL BILIRUBIN 0.1 mg/dL (0.2-1.0); TOTAL PROTEIN 6.4 g/dL (6.4-8.2)
[2021-06-05 17:47] VITALS: BP 110/56
== END 2021-06-05 18:07 | disposition home or self-care (01) ==
LOC: ER 15:12
DX: M54.89 Other dorsalgia (principal); R11.10 Vomiting, unspecified; K21.9 Gastro-esophageal reflux disease without esophagitis; G43.909 Migraine, unspecified, not intractable, without status migrainosus; G89.29 Other chronic pain; F17.200 Nicotine dependence, unspecified, uncomplicated; Z90.49 Acquired absence of other specified parts of digestive tract; Z90.710 Acquired absence of both cervix and uterus; Z98.51 Tubal ligation status; Z96.0 Presence of urogenital implants; Z87.442 Personal history of urinary calculi; Z88.5 Allergy status to narcotic agent; Z91.041 Radiographic dye allergy status
CPT/HCPCS: 36415; 71045; 74176; 80053; 81001; 81025; 83690; 85025; 87086; 96361; 96374; 96375; 99285; J2405; J3010; J7030